=== PATIENT | male | born 1940 | race Caucasian/White ===

== ENCOUNTER 2021-11-10 12:00 | Emergency (ER) | payer OTHER ==
[~2021-11-10] VITALS: Ht 182.9 cm; Wt 99.8 kg
[2021-11-10] MEDS ORDERED: HYDROcodone-ACET 5/325MG TAB PO ONE (15:00)
[2021-11-10] MEDS ORDERED: LISINOPRIL 20 MG TAB PO ONE (18:15)
[2021-11-10] MEDS ORDERED: LISINOPRIL 10 MG TAB PO ONE (18:30)
[2021-11-11 00:20] LABS: Urine Amorphous Crystal FEW /hpf (None Seen); Urine Bacteria NONE SEEN /hpf (None Seen); Urine Blood Negative /uL (Negative); Urine Mucus FEW (None Seen); Urine Specific Gravity 1.015 (1.001-1.035); Urine WBC 1 /hpf (0 - 3)
[2021-11-11 00:47] VITALS: BP 152/81
== END 2021-11-11 01:27 | disposition short-term general hospital (02) ==
LOC: ER 12:00 → EDBD 12:00 → EDSEX 12:00 → ER 11-11 01:27
DX: S00.83XA Contusion of other part of head, initial encounter (principal); I11.0 Hypertensive heart disease with heart failure; I50.9 Heart failure, unspecified; M17.12 Unilateral primary osteoarthritis, left knee; M62.830 Muscle spasm of back; M25.511 Pain in right shoulder; Z88.6 Allergy status to analgesic agent; Z85.46 Personal history of malignant neoplasm of prostate; W18.39XA Other fall on same level, initial encounter; Y93.89 Activity, other specified; Y92.098 Other place in other non-institutional residence as the place of occurrence of the external cause; Y99.8 Other external cause status
CPT/HCPCS: 70450; 72125; 73030; 73200; 73560; 81001; 93005

== ENCOUNTER 2022-01-01 01:22 | Emergency (ER) | payer OTHER ==
[~2022-01-01] VITALS: Ht 180.3 cm; Wt 99.8 kg
[2022-01-01] MEDS ORDERED: DexAMETHasone SOD PHOS 10MG/1ML VIAL INJ IV ONE (02:45)
[2022-01-01] MEDS ORDERED: diphenhdrAMINE HCL 50 MG/1 ML VL IV ONE (02:45)
[2022-01-01 04:12] VITALS: BP 151/80
== END 2022-01-01 06:00 | disposition home or self-care (01) ==
LOC: EDBD 01:22 → ER 01:44
DX: T78.40XA Allergy, unspecified, initial encounter (principal); I11.0 Hypertensive heart disease with heart failure; I50.9 Heart failure, unspecified; X58.XXXA Exposure to other specified factors, initial encounter
CPT/HCPCS: 96374; 96375; 99284; J1100; J1200

== ENCOUNTER 2022-03-09 08:45 | Emergency (ER) | payer OTHER ==
[~2022-03-09] VITALS: Ht 170.2 cm; Wt 218.0 kg
[2022-03-09 10:58] LABS: Urine Bacteria FEW /hpf (None Seen); Urine Blood Negative /uL (Negative); Urine Mucus FEW (None Seen); Urine WBC 1 /hpf (0 - 3)
[2022-03-09] MEDS ORDERED: NEOMYCIN-BACITRACIN-POLYM 15GM TOP OINT TOP SCH (12:00)
[2022-03-09 12:13] VITALS: BP 152/74
== END 2022-03-09 11:56 | disposition home or self-care (01) ==
LOC: ER 08:45 → EDBD 08:45 → ER 11:56
DX: S01.01XA Laceration without foreign body of scalp, initial encounter (principal); M62.838 Other muscle spasm; W18.09XA Striking against other object with subsequent fall, initial encounter; Y93.89 Activity, other specified; Y92.89 Other specified places as the place of occurrence of the external cause; Y99.8 Other external cause status
CPT/HCPCS: 70450; 72125; 81001

== ENCOUNTER 2024-01-29 21:01 | Emergency (ER) | payer OTHER ==
[~2024-01-29] VITALS: Ht 170.2 cm; Wt 99.5 kg
[~2024-01-29 21:01] MED LIST: ALEN70TA74 PO; BISO5TAB44 PO; CETI10TA2 PO; CYAN1SUB2 SL; DULO1CAP6 PO; DULO20CA PO; ESCI1TAB36 PO; GABA-1308 PO; LEVO50TA7 PO; MIRA25TA OR; OMEG-20 PO; SENN-213 PO
[2024-01-29 22:33] LABS: Basophils # (auto) 0 10 ^3/uL (0-0.2); Basophils % (auto) 0.9 % (0.0-2.0); Eosinophils # (auto) 0.3 10 ^3/uL (0-0.8); Eosinophils % (auto) 4.7 % (0.0-7.0); Hematocrit 38.3 % (41.0-53.0); Hemoglobin 12.4 g/dL (13.5-17.5); Lymphocytes # (auto) 1.5 10 ^3/uL (0.4-5.4); Lymphocytes % (auto) 25.8 % (10.0-50.0); Mean Corpuscular Hemoglobin 29.5 pg (28.0-32.0); Mean Corpuscular Hgb Conc. 32.4 g/dL (32.0-36.0); Monocytes # (auto) 0.6 10 ^3/uL (0-1.3); Monocytes % (auto) 10.7 % (0.0-12.0); Neutrophils # (auto) 3.3 10 ^3/uL (1.6-8.6); Neutrophils % (auto) 57.9 % (37.0-80.0); Nucleated Red Blood Cells % 0.3 %; Red Blood Cells 4.21 10^6/uL (4.5-5.90); White Blood Cell 5.7 10^3/uL (4.4-10.8)
[2024-01-29 22:50] LABS: Alanine Aminotransferase 14 U/L (7-40); Alkaline Phosphatase 144 U/L (46-116); Anion Gap 7 (5-15); Aspartate Aminotransferase 25 U/L (13-40); BUN/Creatinine Ratio 21.3 (10.0-20.0); Blood Urea Nitrogen 19 mg/dL (9-23); Calcium 9.8 mg/dL (8.7-10.4); Carbon Dioxide 25 mmol/L (20-30); Chloride 106 mmol/L (98-107); Glucose 102 mg/dL (74-106); Potassium 4.8 mmol/L (3.5-5.1); Sodium 138 mmol/L (136-145)
[2024-01-29 22:51] LABS: Bilirubin, Total 0.5 mg/dL (0.2-1.0)
[2024-01-29 23:37] VITALS: PULSE 74; RESP 19; O2SAT 94
[2024-01-29] MEDS: ONDANSETRON HCL 4 MG/2 ML VIAL IV ONE (23:52)
[2024-01-29] MEDS: MORPHINE SULFATE 4 MG/ML SYR/VIAL IV ONE (23:53)
[2024-01-30] MEDS: IOHEXOL 350 MG/ML 100ML IJ ONE (03:08)
[2024-01-30 08:38] VITALS: PULSE 60; RESP 16; O2SAT 97
[2024-01-30 10:15] VITALS: BP 101/44; PULSE 69; RESP 15; TEMP 98; O2SAT 91
== END 2024-01-30 04:05 | disposition short-term general hospital (02) ==
LOC: ER 21:01
DX: I21.4 Non-ST elevation (NSTEMI) myocardial infarction (principal); M19.90 Unspecified osteoarthritis, unspecified site; C80.1 Malignant (primary) neoplasm, unspecified; C79.51 Secondary malignant neoplasm of bone; C79.89 Secondary malignant neoplasm of other specified sites; I50.33 Acute on chronic diastolic (congestive) heart failure; Z88.6 Allergy status to analgesic agent; Z88.8 Allergy status to other drugs, medicaments and biological substances; Z95.0 Presence of cardiac pacemaker
CPT/HCPCS: 36415; 71045; 71275; 80053; 83880; 84484; 85025; 96374; 96375; 99291; J2270; J2405; Q9967

== ENCOUNTER 2024-05-27 08:21 | Emergency (ER) | payer OTHER ==
[~2024-05-27] VITALS: Ht 172.7 cm; Wt 95.5 kg
[2024-05-27 09:23] VITALS: PULSE 77; RESP 17; TEMP 98.4; O2SAT 93
[2024-05-27 09:29] LABS: Basophils # (auto) 0 10 ^3/uL (0-0.2); Basophils % (auto) 0.7 % (0.0-2.0); Eosinophils # (auto) 0.1 10 ^3/uL (0-0.8); Eosinophils % (auto) 1.1 % (0.0-7.0); Hematocrit 41.7 % (41.0-53.0); Hemoglobin 13.8 g/dL (13.5-17.5); Lymphocytes # (auto) 0.8 10 ^3/uL (0.4-5.4); Lymphocytes % (auto) 11.7 % (10.0-50.0); Mean Corpuscular Hemoglobin 28.7 pg (28.0-32.0); Mean Corpuscular Volume 87.1 fL (80.0-100.0); Monocytes % (auto) 15.7 % (0.0-12.0); Neutrophils # (auto) 4.7 10 ^3/uL (1.6-8.6); Neutrophils % (auto) 70.8 % (37.0-80.0); Platelet Count (auto) 204 10^3/uL (140-450); Red Blood Cells 4.79 10^6/uL (4.5-5.90); Red Cell Distribution Width 14.1 % (11.8-14.3); White Blood Cell 6.6 10^3/uL (4.4-10.8)
[2024-05-27 09:42] LABS: Albumin 3.9 g/dL (3.2-4.8); Alkaline Phosphatase 105 U/L (46-116); Anion Gap 7 (5-15); Aspartate Aminotransferase 23 U/L (13-40); Blood Urea Nitrogen 16 mg/dL (9-23); Calcium 9.4 mg/dL (8.7-10.4); Carbon Dioxide 25 mmol/L (20-31); Chloride 105 mmol/L (98-107); Glucose 115 mg/dL (74-106); Magnesium 2.1 mg/dL (1.6-2.6); Potassium 4.1 mmol/L (3.5-5.1); Sodium 137 mmol/L (136-145)
[2024-05-27 09:43] LABS: Bilirubin, Total 1.2 mg/dL (0.2-1.0)
[2024-05-27 09:48] LABS: INR 1.03 (0.9-1.15); Partial Thromboplastin Time 30.7 SEC (24.5-34.5); Prothrombin Time 10.9 sec (9.3-11.8)
[2024-05-27 10:02] LABS: Alanine Aminotransferase 9 U/L (7-40)
[2024-05-27] MEDS: IOHEXOL 350 MG/ML 100ML IJ ONE (12:58)
[2024-05-27] MEDS: MORPHINE SULFATE 4 MG/ML SYR/VIAL IV ONE (13:45)
[2024-05-27] MEDS: ONDANSETRON HCL 4 MG/2 ML VIAL IV ONE (13:45)
[2024-05-27] MEDS ORDERED: FAMO20TA10 PO (16:13)
[2024-05-27] MEDS ORDERED: DICL50TA2 PO (16:13)
[2024-05-27] MEDS: OXYCODONE W/ ACETAMINOPHEN 5/325MG TABLET PO ONE (16:45)
[2024-05-27 17:40] VITALS: BP 135/55; PULSE 78; RESP 17; O2SAT 97
[2024-05-27] MEDS ORDERED: PERCOT PO (17:48)
== END 2024-05-27 18:19 | disposition home or self-care (01) ==
LOC: EDBD 08:21 → ER 08:21
DX: S22.009A Unspecified fracture of unspecified thoracic vertebra, initial encounter for closed fracture (principal); E03.9 Hypothyroidism, unspecified; K20.90 Esophagitis, unspecified without bleeding; C79.51 Secondary malignant neoplasm of bone; C61 Malignant neoplasm of prostate; I11.0 Hypertensive heart disease with heart failure; I50.9 Heart failure, unspecified; I25.10 Atherosclerotic heart disease of native coronary artery without angina pectoris; F32.A Depression, unspecified; M19.90 Unspecified osteoarthritis, unspecified site; Z95.0 Presence of cardiac pacemaker; Z79.899 Other long term (current) drug therapy; Z85.46 Personal history of malignant neoplasm of prostate; Z95.5 Presence of coronary angioplasty implant and graft; Z79.890 Hormone replacement therapy; Z88.5 Allergy status to narcotic agent; Z88.8 Allergy status to other drugs, medicaments and biological substances; Z91.041 Radiographic dye allergy status
CPT/HCPCS: 36415; 71045; 71260; 74177; 80053; 83735; 83880; 84443; 84484; 85025; 85379; 85610; 85730; 93005; 96374; 96375; 99285; J2270; J2405; Q9967

== ENCOUNTER 2024-06-07 16:27 | Inpatient (IN) | payer OTHER ==
[~2024-06-07] VITALS: Ht 170.2 cm; Wt 96.9 kg
[~2024-06-07 16:27] MED LIST changes: +DICL50TA2 PO; +FAMO20TA10 PO; +PERCOT PO
[2024-06-07 16:40] VITALS: PULSE 61; RESP 22; O2SAT 95
--- NOTE | 2024-06-07 16:45 | ED.PDOC ---
History of Present Illness HPI Comments 83 y.o male with PMH of prostate cancer, hyperlipidemia, HTN, CVA, thyroid and CHF, presents to the ED via EMS for a chief complaint of dizziness s/p blood draw today. Patient reports he was in [place] getting some blood work done before he started chemotherapy for prostate cancer that metastasized, felt lightheaded and short of breath. Patient then went home to rest and a couple hours later when getting up to use the restroom, he felt dizzy accompanied with cold sweats. Patient denies any LOC, but does complaint of new onset mild chest pain across lower chest region and some SOB. Patient denies any nausea, vomiting, diarrhea, fever or chills. Time Seen by : 16:31 Primary Care Provider: NEIDA Reviewed Notes: Nurses Notes, [facility] Notes, Medications, Allergies Allergies: Coded Allergies: Acetaminophen (Verified Allergy, Unknown, 01/29/24) Hydrocodone (Verified Allergy, Unknown, 01/29/24) Iodine (Verified Allergy, Unknown, 04/24/23) Home Meds Active Scripts Oxycodone W/ Acetaminophen (Percocet 5/325MG) 1 Tab Tb, 1 TAB PO TID PRN for 10 Days, #30 TAB Prov:TOSHA SOSA MD 05/27/24 Famotidine (PEPCID TABLET) 20 Mg Tb, 1 TAB PO BID for 20 Days, #40 TAB 5 Refills Prov:TOSHA SOSA MD 05/27/24 Diclofenac Potassium (Diclofenac Potassium) 50 Mg Tab, 1 TAB PO TIDP for 10 D ays, #30 TAB Prov:TOSHA SOSA MD 05/27/24 Reported Medications Mirabegron Base (MYRBETRIQ) 25 Mg Tab, 25 MG OR DAILY, TAB 11/11/23 Alendronate Sodium (Alendronate Sodium) 70 Mg Tab, 1 TAB PO QWEEKLY, #4 TAB 3 Refills 11/11/23 Sennosides-Docusate Sodium (Senna Plus 8.6-50 mg) 1 Tab Tab, 1 TAB PO QHSP for CONSTIPATION, TAB 11/11/23 Bisoprolol Fumarate (Bisoprolol Fumarate) 5 Mg Tab, 1 TAB PO DAILY for HEART FAILURE, #30 TAB 5 Refills 11/11/23 Cyanocobalamin (Gnp B-12) 2,500 Mcg Sub, 2500 MCG SL DAILY, INJ 11/11/23 [place]-3 Fatty Acids (FISH OIL) 1,000 Mg Cap, 1000 MG PO DAILY, CAP 11/11/23 Escitalopram Oxalate (ESCITALOPRAM OXALATE) 10 Mg Tab, 1 TAB PO DAILY for DEPRESSION, #30 TAB 3 Refills 11/11/23 Duloxetine Hcl (Cymbalta) 20 Mg Cap, 1 CAP PO DAILY, #30 CAP 2 Refills 11/11/23 Cetirizine Hcl (Kls Aller-Chanda) 10 Mg Tab, 1 TAB PO QAM, #30 TAB 3 Refills 11/11/23 Levothyroxine Sodium (Levothyroxine Sodium) 50 Mcg Tab, 50 MCG PO QAM, TAB 11/11/23 Gabapentin (Gabapentin) 100 Mg Cap, 100 MG PO QHSP for 30 Days, MG 11/11/23 Duloxetine HCl (Duloxetine HCl) 60 Mg Cap, 1 CAP PO DAILY 11/11/23 Information Source: Patient, Emergency Med Personnel Mode of Arrival: EMS Severity: Moderate Timing: Hours Duration: Since onset Past Medical History PAST MEDICAL HISTORY: Arthritis, Cancer, CHF, Depression, HTN, Thyroid Surgical History: Pacemaker Family History Family History: Reviewed,noncontributory to illness Social History Smoker: Non-Smoker Alcohol: Denies ETOH Use Drugs: Denies Drug Use Lives In: Home Constitutional: reports: sweats; denies: chills, diaphoresis, fatigue, fever, malaise, weakness, others EENTM: denies: blurred vision, double vision, ear bleeding, ear discharge, ear drainage, ear pain, ear ringing, eye pain, eye redness, hearing loss, mouth pain, mouth swelling, nasal discharge, nose bleeding, nose congestion, nose pain, photophobia, tearing, throat pain, throat swelling, voice changes, others Respiratory: denies: cough, hemoptysis, orthopnea, SOB at rest, shortness of breath, SOB with excertion, stridor, wheezing, others Cardiovascular: reports: lightheadedness; denies: chest pain, dizzy spells, diaphoresis, Dyspnea on exertion, edema, irregular heart beat, left arm pain, palpitations, PND, syncope, others Gastrointestinal: denies: abdomen distended, abdominal pain, blood streaked bowels, constipated, diarrhea, dysphagia, difficulty swallowing, hematemesis, melena, nausea, poor appetite, poor fluid intake, rectal bleeding, rectal pain, vomiting, others Genitourinary: denies: burning, dysuria, flank pain, frequency, hematuria, incontinence, penile discharge, penile sore, pain, testicle pain, testicle swelling, urgency, others Neurological: reports: dizziness; denies: fainting, headache, left sided numbness, left sided weakness, numbness, paresthesia, pre-existing deficit, right sided numbness, right sided weakness, seizure, speech problems, tingling, tremors, weakness, others Musculoskeletal: denies: back pain, gout, joint pain, joint swelling, muscle pain, muscle stiffness, neck pain, others Integumetry: denies: bruises, change in color, change in hair/nails, dryness, laceration, lesions, lumps, rash, wounds, others Allergic/Immunocompromised: denies: Difficulty Healing, Frequent Infections, Hives, Itching, others Hematologic/Lymphatic: denies: anemia, blood clots, easy bleeding, easy bruising, swollen glands, others Endocrine: denies: excessive hunger, excessive sweating, excessive thirst, excessive urination, flushing, intolerance to cold, intolerance to heat, unexplained weight gain, unexplained weight loss, others Psychiatric: denies: anxiety, bipolar disorder, depression, hopeless, panic disorder, schizophrenia, sleepless, suicidal, others All Other Systems: Reviewed and Negative Physical Exam General Appearance: Moderate Distress HEENT: Pale Conjuntivae (L), Pale Conjuntivae (R), Pharynx Normal, TMs Normal Neck: Full Range of Motion, Non-Tender, Normal, Normal Inspection Respiratory: Chest Non-Tender, Lungs Clear, No Accessory Muscle Use, No Respiratory Distress, Normal Breath Sounds Cardiovascular: No Edema, No JVD, No Murmur, No Gallop, Normal Peripheral Pulses, Regular Rate/Rhythm Breast Exam: Deferred Gastrointestinal: No Organomegaly, Non Tender, No Pulsatile Mass, Normal Bowel Sounds, Soft Genitalia: Deferred Pelvic: Deferred Rectal: Deferred Extremities: No calf tenderness, Normal capillary refill, Normal inspection, Normal range of motion, Non-tender, No pedal edema Musculoskeletal : Apperance: Normal Neurologic: Alert, photogrammetry airplane pilot II-XII nml as Tested, Motor Weakness, Normal Affect, Normal Mood, No Sensory Deficits Cerebellar Function: Normal Reflexes: Normal Skin: Dry, Pallor, Warm Lymphatic: No Adenopathy Was a procedure done? Was a procedure done?: No Differential Dx Considerations may include: Dehydration, electrolyte imbalance X-Ray, Labs, Meds, VS Vital Signs Date Time Temp Pulse Resp B/P (MAP) Pulse Ox O2 Delivery O2 Flow Rate FiO2 06/07/24 19:02 97.6 72 18 124/77 (93) 94 06/07/24 16:45 72 06/07/24 16:40 61 22 95 Room Air* 0 21 06/07/24 16:40 98.4 95 22 100/55 (70) 94 98.4 Lab Test 06/07/24 19:15 06/07/24 18:02 Range/Units Troponin I High Sensitivity Pending 24 </=54 ng/L White Blood Count 8.5 4.4-10.8 10^3/uL Red Blood Count 3.85 L 4.5-5.90 10^6/uL Hemoglobin 10.9 L 13.5-17.5 g/dL Hematocrit 33.4 L 41.0-53.0 % Mean Corpuscular Volume 86.7 80.0-100.0 fL Mean Corpuscular Hemoglobin 28.2 28.0-32.0 pg Mean Corpuscular Hemoglobin Concent 32.5 32.0-36.0 g/dL Red Cell Distribution Width 13.9 11.8-14.3 % Platelet Count 309 140-450 10^3/uL Mean Platelet Volume 8.0 6.9-10.8 fL Neutrophils (%) (Auto) 75.5 37.0-80.0 % Lymphocytes (%) (Auto) 12.8 10.0-50.0 % Monocytes (%) (Auto) 9.3 0.0-12.0 % Eosinophils (%) (Auto) 1.8 0.0-7.0 % Basophils (%) (Auto) 0.6 0.0-2.0 % Neutrophils # (Auto) 6.4 1.6-8.6 10 ^3/uL Lymphocytes # (Auto) 1.1 0.4-5.4 10 ^3/uL Monocytes # (Auto) 0.8 0-1.3 10 ^3/uL Eosinophils # (Auto) 0.2 0-0.8 10 ^3/uL Basophils # (Auto) 0.1 0-0.2 10 ^3/uL Nucleated Red Blood Cells 0.0 % Sodium Level 138 136-145 mmol/L Potassium Level 5.7 *H 3.5-5.1 mmol/L Chloride Level 107 98-107 mmol/L Carbon Dioxide Level 29 20-31 mmol/L Anion Gap 2 L 5-15 Blood Urea Nitrogen 32 H 9-23 mg/dL Creatinine 0.98 0.700-1.30 mg/dL Glomerular Filtration Rate Calc 77 >90 mL/min BUN/Creatinine Ratio 32.7 H 10.0-20.0 Serum Glucose 128 H 74-106 mg/dL Calcium Level 9.3 8.7-10.4 mg/dL IV Hep-Lock was established. The CBC shows anemia with a hemoglobin of 10.9 The hematocrit of 33.4 The chemistry panel was done in his within normal limits except for potassium of 5.7. At this time, the patient was treated with sodium bicarbonate as well as calcium for the elevated potassium We did contact [facility] [place] because of the patient's seems to be unstable for [facility]. Because of the patient's autonomic dysfunction, we did make the patient unstable for transfer. The [facility] [place] authorization #[id number] We have discussed the findings with the patient and they are in agreement with the management. Time of 1ST Reevaluation: 16:41 Reevaluation 1ST: Unchanged Patient Education/Counseling: Diagnosis, Treatment, Prognosis Family Education/Counseling: No Family Present Departure 1 Departure Time of Disposition: 20:08 Impression: Primary Impression: Autonomic dysfunction Additional Impressions: Hyperkalemia Generalized weakness Disposition: ADMITTED INPATIENT Admit to: Tele Condition: Fair Critical Care Note Critical Care Time?: Yes (45 min-critical care time only) Stability Stability form required: Yes Unstable for transfer: Telemetry monitoring (Telemetry monitoring required), ED Physician Assesment (Clinical assesment) I personally scribed for BRYAN WHEELER MD ([email or web address]) on 06/07/24 at 16:45. Electronically submitted by Ml Zuluaga ([facility]). BRYAN WHEEELR MD Jun 07, 2024 16:45
[2024-06-07 18:44] LABS: Basophils # (auto) 0.1 10 ^3/uL (0-0.2); Basophils % (auto) 0.6 % (0.0-2.0); Eosinophils # (auto) 0.2 10 ^3/uL (0-0.8); Eosinophils % (auto) 1.8 % (0.0-7.0); Hematocrit 33.4 % (41.0-53.0); Hemoglobin 10.9 g/dL (13.5-17.5); Lymphocytes # (auto) 1.1 10 ^3/uL (0.4-5.4); Lymphocytes % (auto) 12.8 % (10.0-50.0); Mean Corpuscular Hemoglobin 28.2 pg (28.0-32.0); Mean Corpuscular Hgb Conc. 32.5 g/dL (32.0-36.0); Mean Corpuscular Volume 86.7 fL (80.0-100.0); Monocytes # (auto) 0.8 10 ^3/uL (0-1.3); Monocytes % (auto) 9.3 % (0.0-12.0); Neutrophils # (auto) 6.4 10 ^3/uL (1.6-8.6); Neutrophils % (auto) 75.5 % (37.0-80.0); Platelet Count (auto) 309 10^3/uL (140-450); Red Blood Cells 3.85 10^6/uL (4.5-5.90); Red Cell Distribution Width 13.9 % (11.8-14.3); White Blood Cell 8.5 10^3/uL (4.4-10.8)
--- NOTE | 2024-06-07 18:45 | ECG ---
[facility] Test Date: 2024-06-07 Test Time: 16:45:30 Pat Name: LEONARDA LY Department: ER Room: 0280 Gender: M [employer]o Press Operator: SB : [id number] Requested By: BRYAN WHEELER Order Number: [id number] Reading MD: David Russell Measurements Intervals [place] Rate: 72 P: 29 MN: 235 QRS: -50 QRSD: 131 T: 106 QT: 419 QTc: 459 Interpretive Statements Ventricular-paced complexes No further rhythm analysis attempted due to paced rhythm Prolonged MN interval LVH with IVCD, LAD and secondary repol abnrm Anterolateral infarct, age indeterminate Electronically Signed On 06-12-2024 7:55:24 PDT by David Russell Please click the below link to view image of tracing.
[2024-06-07 18:53] LABS: Chloride 107 mmol/L (98-107); Sodium 138 mmol/L (136-145)
[2024-06-07 18:54] LABS: Anion Gap 2 (5-15); Calcium 9.3 mg/dL (8.7-10.4); Carbon Dioxide 29 mmol/L (20-31)
[2024-06-07 18:59] LABS: BUN/Creatinine Ratio 32.7 (10.0-20.0); Blood Urea Nitrogen 32 mg/dL (9-23); Glucose 128 mg/dL (74-106)
[2024-06-07 19:06] LABS: Potassium 5.7 mmol/L (3.5-5.1)
[2024-06-07 20:00] VITALS: PULSE 77; RESP 18; O2SAT 95
[2024-06-07] MEDS: CALCIUM GLUC 1,000mg/50ml-NS 50 ML IV ONE (20:30)
[2024-06-07] MEDS: SODIUM BICARB 8.4% 50Meq/50ml SYR Vial IV ONE (20:30)
[2024-06-07] MEDS ORDERED: NITROGLYCERIN 0.4 MG SL TAB SL PRN (22:15)
[2024-06-07] MEDS ORDERED: MORPHINE SULFATE INJ 2 MG/ml SYRG IV PRN (22:15)
[2024-06-07] MEDS: ENOXAPARIN SOD 40 MG/0.4 ML SYRINGE SC SCH (22:45)
[2024-06-08] VITALS (9 sets, daily range): BP systolic 106–127; BP diastolic 39–55; PULSE 56–89; RESP 14–18; TEMP 97.4–98.5; O2SAT 96–99
--- NOTE | 2024-06-08 | DVHHPRES ---
History of Present Illness Resident Creating Document: BONG ZARATE RESIDENT History of Present Illness LEONARDA LY 83 years old male with a PMH of prostate cancer, hyperlipidemia, HTN, CVA, CHF presented to the ED with the chief complaints of dizziness since 1 week prior to admission. Patient reported he has been having dizziness on and off for past 1 week but today patient reported that he went to [place] for blood test and went home to rest and a couple hours later when getting up to use the restroom, he felt dizzy accompanied with cold sweats and nausea. 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 Patient complaints of mild chest pain in the lower chest across going to back and some SOB for which he has been on home oxygen. On my assessment patient denies LOC, nausea, vomiting, diarrhea, fever and other acute symptoms. Past Medical History Arthritis, prostatic cancer, CHF, depression, HTN, hypothyroidism Past Surgical History Pacemaker and valve replacement surgery in 2023 Family History denies Past Social History Lives with , denies smoking, alcohol and other drug abuse Review of Systems Constitutional: No: Fever, Chills, Sweats, Weakness, Malaise, Other Eyes: No: Pain, Vision change, Conjunctivae inflammation, Eyelid inflammation, Other, Redness ENT: No: Ear pain, Ear discharge, Nose pain, Nose discharge, Nose congestion, Mouth pain, Mouth swelling, Throat pain, Throat swelling, Other Respiratory: Shortness of breath Cardiovascular: Lt Headedness Gastrointestinal: Nausea Genitourinary: No Dysuria, No Frequency, No Incontinence, No Hematuria, No Retention, No Other Musculoskeletal: No: other, neck pain, shoulder pain, arm pain, back pain, hand pain, leg pain, foot pain Skin: No: Rash, Lesions, Jaundice, Bruising, Other Neurological: No: Weakness, Numbness, Incoordination, Change in speech, Confusion, Seizures, Other Allergies: Coded Allergies: Acetaminophen (Verified Allergy, Unknown, 01/29/24) Hydrocodone (Verified Allergy, Unknown, 01/29/24) Iodine (Verified Allergy, Unknown, 04/24/23) Medications Current Medications Medications Dose Ordered Sig/Nga Route Start Time Stop Time Status Last Admin Dose Admin Sodium Chloride 10 ml Q8HR IV 06/08/24 06:00 Acetaminophen 325 mg Q4HP PRN PO 06/07/24 22:15 Ondansetron HCl 4 mg Q4HP PRN IV 06/07/24 22:15 Enoxaparin Sodium 40 mg DAILY SC 06/07/24 22:15 06/07/24 22:45 40 MG Nitroglycerin 0.4 mg Q5MINP PRN SL 06/07/24 22:15 Morphine Sulfate 2 mg Q30M PRN IV 06/07/24 22:15 Gabapentin 100 mg QHSP PO 06/08/24 22:00 UNV Levothyroxine Sodium 50 mcg QAM PO 06/08/24 07:00 UNV Oxycodone/ Acetaminophen 1 tab TID PRN PO 06/08/24 00:00 UNV Patient Own Medication 1 tab QWEEKLY PO 06/08/24 00:00 UNV Patient Own Medication 1 tab DAILY PO 06/08/24 10:00 UNV Patient Own Medication 1 tab QAM PO 06/08/24 07:00 UNV Patient Own Medication 2,500 mcg DAILY SL 06/08/24 10:00 UNV Patient Own Medication 1 tab DAILY PO 06/08/24 10:00 UNV Patient Own Medication 25 mg DAILY OR 06/08/24 10:00 UNV Pantoprazole Sodium 40 mg DAILY IV 06/08/24 10:00 UNV Exam Vital Signs Vital Signs Date Time Temp Pulse Resp B/P (MAP) Pulse Ox O2 Delivery O2 Flow Rate FiO2 06/07/24 23:43 80 22 118/46 (70) 100 06/07/24 20:00 Nasal Cannula* 2 28 06/07/24 20:00 98.0 98.0 Exam Pt is lying on bed General Appearance: Alert, Oriented X3, Cooperative, Not in acute distress HEENT: Atraumatic, Mucous membranes moist/pink Respiratory: Clear to auscultation, Normal air movement, Cardiovascular: Regular rate, Normal S1, Normal S2, No murmurs Abdominal: Active bowel sounds, Soft, no distention, no tenderness Extremities: Trace edema, Normal pulses, No tenderness/swelling Skin: No Significant rash, except past surgical scars Neuro: Normal speech, sensorimotor deficits none Psych/Mental Status: Mental status NL, Mood NL Nurse was there as sharperone during examination Labs/Xrays Labs Test 06/07/24 20:50 06/07/24 18:02 Range/Units Troponin I High Sensitivity 17 </=54 ng/L White Blood Count 8.5 4.4-10.8 10^3/uL Red Blood Count 3.85 L 4.5-5.90 10^6/uL Hemoglobin 10.9 L 13.5-17.5 g/dL Hematocrit 33.4 L 41.0-53.0 % Mean Corpuscular Volume 86.7 80.0-100.0 fL Mean Corpuscular Hemoglobin 28.2 28.0-32.0 pg Mean Corpuscular Hemoglobin Concent 32.5 32.0-36.0 g/dL Red Cell Distribution Width 13.9 11.8-14.3 % Platelet Count 309 140-450 10^3/uL Mean Platelet Volume 8.0 6.9-10.8 fL Neutrophils (%) (Auto) 75.5 37.0-80.0 % Lymphocytes (%) (Auto) 12.8 10.0-50.0 % Monocytes (%) (Auto) 9.3 0.0-12.0 % Eosinophils (%) (Auto) 1.8 0.0-7.0 % Basophils (%) (Auto) 0.6 0.0-2.0 % Neutrophils # (Auto) 6.4 1.6-8.6 10 ^3/uL Lymphocytes # (Auto) 1.1 0.4-5.4 10 ^3/uL Monocytes # (Auto) 0.8 0-1.3 10 ^3/uL Eosinophils # (Auto) 0.2 0-0.8 10 ^3/uL Basophils # (Auto) 0.1 0-0.2 10 ^3/uL Nucleated Red Blood Cells 0.0 % Sodium Level 138 136-145 mmol/L Potassium Level 5.7 *H 3.5-5.1 mmol/L Chloride Level 107 98-107 mmol/L Carbon Dioxide Level 29 20-31 mmol/L Anion Gap 2 L 5-15 Blood Urea Nitrogen 32 H 9-23 mg/dL Creatinine 0.98 0.700-1.30 mg/dL Glomerular Filtration Rate Calc 77 >90 mL/min BUN/Creatinine Ratio 32.7 H 10.0-20.0 Serum Glucose 128 H 74-106 mg/dL Calcium Level 9.3 8.7-10.4 mg/dL Assessment/Plan Assessment/Plan # Dizziness likely presyncope -admitted to telemetry unit -ordered Carotid Doppler, pending -check orthostatic vitals # Hyprkalemia - given Lokelma - Monitor lab # prostate cancer -continue follow up with Oncology # Acute on chronic hypoxic respiratory failure -currently on 3 L NC -[place] CXR # Depression not in suicidal or homicidal ideation -continue home meds # hypothyroidism -continue home meds levothyroxine 50 mcg Cardiac Diet for now Lovenox for VTE PPX Protonix Reconciled home meds Goals of care with the patient for more than 27 minutes: Full code status Case management discussed with Dr. Alvarez, patient and nurse Plan discussed with: Patient, Other (nurse) My Orders Orders - BONG ZARATE RESIDENT Procedure Category Date Status Time Admit ADMIT 06/07/24 Transmitted 22:03 Allergies SARAH 06/07/24 In Process 22:03 Code Status CODE 06/07/24 Transmitted 22:03 Sodium Chloride Lock PHA 06/08/24 In Process (Saline Lock Ns) 06:00 Acetaminophen Tablet PHA 06/07/24 In Process (Tylenol Tablet) 22:15 Ondansetron Hcl PHA 06/07/24 In Process (Zofran) 22:15 Complete Blood Count LAB 06/08/24 Verified 04:00 Comprehensive LAB 06/08/24 Verified Metabolic Panel 04:00 Cardiac DIET 06/08/24 Transmitted Diet-2gna,Lofat,Lochol Breakfast Carotid Duplx W Color US 06/07/24 Taken DOP 22:03 Enoxaparin Sodium PHA 06/07/24 In Process (Lovenox) 22:15 Nitroglycerin PHA 06/07/24 In Process Sublingual (Ntrostat 22:15 Morphine Sulfate PHA 06/07/24 In Process Injection 22:15 Oxygen By Nasal RT 06/07/24 Transmitted Cannula 22:03 Stat Ekg For Chest SARAH 06/07/24 In Process Pain 22:03 Notify Of Changes SARAH 06/07/24 In Process From Base 22:03 Long Wall Shear Operator For SARAH 06/07/24 In Process 24 Hours 22:03 Emergency Dysrhythmia SARAH 06/07/24 In Process Protocol 22:03 Rhythm Strips Once SARAH 06/07/24 In Process Every Shift 22:03 Sodium Zirconium PHA 06/08/24 Logged Cyclosilicate 00:00 Chest Xray 1 View XY 06/07/24 Logged 23:51 Gabapentin Capsule PHA 06/08/24 Logged (Neurontin Capsule) 22:00 Levothyroxine Tablet PHA 06/08/24 Logged (Synthroid Tablet) 07:00 Oxycodone W/ Acet PHA 06/08/24 Logged 5/325mg Tab (Percocet 00:00 (Nf) Alendronate PHA 06/08/24 Logged Sodium 00:00 (Nf) Bisoprolol PHA 06/08/24 Logged Fumarate 10:00 (Nf) Cetirizine Hcl PHA 06/08/24 Logged (Kls Aller-Chanda) 07:00 (Nf) Cyanocobalamin PHA 06/08/24 Verified (Gnp B-12) 10:00 (Nf) Escitalopram PHA 06/08/24 Verified Oxalate 10:00 (Nf) Mirabegron Base PHA 06/08/24 Verified (Myrbetriq) 10:00 Pantoprazole PHA 06/08/24 Logged (Protonix) 00:00 Pantoprazole PHA 06/08/24 Logged (Protonix) 10:00 B-Type Natriuretic LAB 06/07/24 Transmitted Peptide 23:57 Drug Screen LAB 06/07/24 Transmitted 23:57 Hemoglobin A1c LAB 06/07/24 Transmitted 23:57 PTPTT LAB 06/08/24 Verified 04:00 Vitamin D, 25-Hydroxy LAB 06/07/24 Transmitted 23:57 Vitamin B12 LAB 06/07/24 Transmitted 23:57 Urinalysis LAB 06/07/24 Transmitted 23:57 Thyroid Stimulating LAB 06/07/24 Transmitted Hormone 23:57 Date of Service: Jun 07, 2024 Billing Provider: SHERIF ALVAREZ MD Common Visit Codes: 26534-IMIQUVW INP/OBS CARE (HIGH) Secondary Visit Codes: 57037-[id number] CARE PLAN 30 MINUTES ELLIOTPERCYARPIT RESIDENT Jun 08, 2024 00:00 SHERIF ALVAREZ MD Jun 10, 2024 08:21
[2024-06-08] MEDS: SODIUM ZIRCONIUM CYCL 10 GM PAK PO ONE (01:22)
[2024-06-08] MEDS: PANTOPRAZOLE 40 MG/10 ML VIAL INJ IV ONE (01:23)
--- NOTE | 2024-06-08 03:10 | DVH ---
US CAROTID DOPPLER CLINICAL INDICATION: dizziness TECHNIQUE: Multiple grayscale, color Doppler and spectral Doppler ultrasound images were obtained thr oughout both carotid systems. COMPARISON: US CAROTID DUPLX W COLOR DOP on DOS: 11/11/23 FINDINGS: RIGHT: CCA PSV: 80 cm/s ECA PSV: 112 cm/s ICA PSV: 155 cm/s ICA EDV: 32 cm/s ICA/CCA Ratio: 1.9 Vertebral artery: Patent, antegrade flow. Mild soft plaque at the carotid bulb. Grayscale images demonstrate no visible stenosis. Spectral anal ysis demonstrates no hemodynamically significant CCA or ICA stenosis. LEFT: CCA PSV: 89 cm/s ECA PSV: 159 cm/s ICA PSV: 137 cm/s ICA EDV: 17 cm/s ICA/CCA Ratio: 1.5 Vertebral artery: Patent, antegrade flow. Mild calcified plaque in the carotid bifurcation. Grayscale images demonstrate no visible stenosis. Spectral analysis demonstrates no hemodynamically significant CCA or ICA stenosis. IMPRESSION: No evidence of hemodynamically significant CCA or ICA stenosis.
--- NOTE | 2024-06-08 05:45 | DVH ---
CHEST RADIOGRAPH Indication:sob Technique: Single frontal view of the chest was obtained COMPARISON: XY CHEST PORTABLE on DOS: 05/27/24, XY CHEST PORTABLE on DOS: 01/29/24, XY CHEST PORTABLE on DOS: 11/10/23 FINDINGS: Lines and Tubes: Left chest wall pacemaker. Lungs: Mild congestion. Pleura: No effusion. No pneumothorax. Cardiomediastinal contours: Unremarkable Bones: Unremarkable IMPRESSION: Mild pulmonary vascular congestion.
[2024-06-08] MEDS: LEVOTHYROXINE SODIUM 50 MCG TAB PO SCH (06:25)
[2024-06-08] MEDS: SODIUM CHLOR 0.9% PF (SALINE LOCK) 10ML VIAL/SYR IV SCH (06:25)
[2024-06-08 07:06] LABS: Basophils # (auto) 0 10 ^3/uL (0-0.2); Basophils % (auto) 0.4 % (0.0-2.0); Eosinophils # (auto) 0 10 ^3/uL (0-0.8); Eosinophils % (auto) 0.1 % (0.0-7.0); Hemoglobin 9.8 g/dL (13.5-17.5); Lymphocytes # (auto) 1.4 10 ^3/uL (0.4-5.4); Mean Corpuscular Hemoglobin 29.2 pg (28.0-32.0); Mean Corpuscular Hgb Conc. 33.9 g/dL (32.0-36.0); Mean Corpuscular Volume 86.2 fL (80.0-100.0); Monocytes # (auto) 0.9 10 ^3/uL (0-1.3); Monocytes % (auto) 9.1 % (0.0-12.0); Neutrophils # (auto) 7.9 10 ^3/uL (1.6-8.6); Neutrophils % (auto) 76.4 % (37.0-80.0); Nucleated Red Blood Cells % 0.1 %; Platelet Count (auto) 304 10^3/uL (140-450); Red Blood Cells 3.36 10^6/uL (4.5-5.90); White Blood Cell 10.3 10^3/uL (4.4-10.8)
[2024-06-08 07:17] LABS: INR 1.05 (0.9-1.15); Prothrombin Time 11.1 sec (9.3-11.8)
[2024-06-08 07:20] LABS: Alanine Aminotransferase 10 U/L (7-40); Albumin 3.4 g/dL (3.2-4.8); Alkaline Phosphatase 98 U/L (46-116); Anion Gap 5 (5-15); Aspartate Aminotransferase 18 U/L (13-40); BUN/Creatinine Ratio 45.7 (10.0-20.0); Bilirubin, Total 0.3 mg/dL (0.2-1.0); Calcium 9.1 mg/dL (8.7-10.4); Carbon Dioxide 26 mmol/L (20-31); Chloride 108 mmol/L (98-107); Glucose 146 mg/dL (74-106); Magnesium 2.3 mg/dL (1.6-2.6); Potassium 4.8 mmol/L (3.5-5.1); Sodium 139 mmol/L (136-145); Total Protein 5.9 g/dL (5.7-8.2)
[2024-06-08 07:27] LABS: Blood Urea Nitrogen 43 mg/dL (9-23)
[2024-06-08] MEDS: CYANOCOBALAMIN 500 MCG TAB PO SCH (08:55)
[2024-06-08] MEDS: CITALOPRAM HYDROBR 20 MG TAB PO SCH (08:55)
[2024-06-08] MEDS: ONDANSETRON HCL 4 MG/2 ML VIAL IV PRN (08:55)
[2024-06-08] MEDS: PANTOPRAZOLE 40 MG/10 ML VIAL INJ IV SCH ×2 (08:55→21:28)
[2024-06-08] MEDS: ATENOLOL 25 MG TAB PO SCH (08:56)
[2024-06-08] MEDS: FUROSEMIDE 20 MG/2 ML VIAL IV SCH (11:15)
[2024-06-08] MEDS: LORATADINE 10 MG TAB PO ONE (11:27)
[2024-06-08 12:23] LABS: % Iron Saturation 35.1 % (20-55)
--- NOTE | 2024-06-08 16:12 | DVHPNRES ---
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 Patient says that he usually has 2 bowel movements per day recently for the past 2 weeks he has been experiencing C to 4 bowel movements in a day associated with epigastric pain radiating to the back, tarry black stools for the past week, now have pain dark brown. He says that he was recently hospitalized and was receiving antibiotics but does not remember the details. Also reports shortness of breath on rest and exertion for the same duration but no orthopnea/PND. Patient also reported dizziness on rest and on standing up from the bed starting a week ago. Associated factors include nausea and cold sweating. Denies fever/chills. He underwent a colonoscopy and EGD less than 10 years ago which was positive for polyps but details unknown. Patient has a PCP at [facility], does not remember the name Social history Lives with daughter who is the caregiver Never smoked in her life, quit drinking 50 years back, denies illicit drug use Home medications: Patient does not remember, per EMR: Alendronate 70 mg, bisoprolol 5 mg, Percocet, senna, cetirizine, duloxetine, escitalopram, gabapentin, mirabegron, levothyroxine, citalopram Objective vital signs Vital Sign Date Time Temp Pulse Resp B/P (MAP) Pulse Ox O2 Delivery O2 Flow Rate FiO2 06/08/24 13:00 97.8 73 16 127/55 (79) 98 97.8 06/08/24 08:10 Nasal Cannula* 2 28 Total Intake and Output 06/07/24 06/07/24 06/08/24 15:00 23:00 07:00 Intake Total 50 ml 0 ml Balance 50 ml 0 ml medications Current Medications Medications Dose Ordered Sig/Nga Route Start Time Stop Time Status Last Admin Dose Admin Sodium Chloride 10 ml Q8HR IV 06/08/24 06:00 06/08/24 14:15 10 ML Acetaminophen 325 mg Q4HP PRN PO 06/07/24 22:15 Ondansetron HCl 4 mg Q4HP PRN IV 06/07/24 22:15 06/08/24 08:55 4 MG Enoxaparin Sodium 40 mg DAILY SC 06/07/24 22:15 06/08/24 08:56 40 MG Nitroglycerin 0.4 mg Q5MINP PRN SL 06/07/24 22:15 Morphine Sulfate 2 mg Q30M PRN IV 06/07/24 22:15 Gabapentin 100 mg QHSP PO 06/08/24 22:00 Levothyroxine Sodium 50 mcg QAM PO 06/08/24 07:00 06/08/24 06:25 50 MCG Oxycodone/ Acetaminophen 1 tab TID PRN PO 06/08/24 00:00 Patient Own Medication 1 tab QWEEKLY PO 06/09/24 06:00 Atenolol 50 mg DAILY PO 06/08/24 10:00 06/08/24 08:56 50 MG Loratadine 10 mg DAILY PO 06/09/24 10:00 Cyanocobalamin 2,500 mcg DAILY PO 06/08/24 10:00 06/08/24 08:55 2,500 MCG Citalopram Hydrobromide 20 mg DAILY PO 06/08/24 10:00 06/08/24 08:55 20 MG Patient Own Medication 25 mg DAILY PO 06/08/24 10:00 Pantoprazole Sodium 40 mg BID IV 06/08/24 22:00 Furosemide 20 mg BIDD IV 06/08/24 11:15 06/08/24 11:15 20 MG Patient Own Medication 1 DAILY PO 06/09/24 10:00 Examination Elderly male patient lying in bed, in no acute distress, patient experienced 2 dark brown bowel movements during my H and P. reported dizziness seconds later after raising the head of the bed. General: Elderly, afebrile, palor, mucosae are moist Cardiovascular: Regular S1 and S2. No murmurs, gallops or rubs. No JVD elevation. No pedal edema Respiratory: Bilateral basilar crackles heard, saturating 94 on 2 L nasal cannula Abdomen: Soft, nontender, nondistended, normoactive bowel sounds, no rebound tenderness, no organomegaly, no masses Genitourinary: Deferred MSK/skin: Mobilizes 4 limbs. Skin is dry and warm. Bilateral pitting edema noticed. Neurological: No motor, no sensitive deficits, normal speech. Pupils are isocoric and reactive. Psych/Mental Status: A/Ox4 laboratory and microbiology Laboratory Tests 06/08/24 06:18 Test 06/08/24 06:18 Range/Units Serum Glucose 146 H 74-106 mg/dL Labs and/or images reviewed: Labs reviewed by me, Image(s) reviewed by me Problem List/Assessment/Plan Problem List/Assessment/Plan Probable upper GI bleeding Protonix IV 40 mg b.i.d. Clear liquid diet Occult blood positive GI consulted Rule out C diff Reports recent hospitalization or antibiotic use Testing pending Acute anemia-normocytic secondary to questionable GI blood loss H&H 9.04/11 H&H on 05/27-hemoglobin 13/hematocrit 31 Iron normal, TIBC low normal, % saturation normal Retic count pending LDH pending Questionable Acute on chronic CHF exacerbation status post ppm placement at [facility] 03/2024 Chest x-ray revealed mild pulmonary vascular congestion Lasix 20 mg IV b.i.d. BNP 76 Echo pending Last known echo 11/04 showed LVEF 61%, RVSP 40 mmHg Hyperkalemia-resolved Received 1 dose of Lokelma Critical aortic stenosis status post TAVR - February 2024 at [facility] Echocardiogram pending Metastatic Prostate cancer to his spine and ribs Patient is planned for CTX next month at [facility] Continue home medication - Extandi 40 mg 4 capsules a day History of liver cirrhosis CT 05/27/2023 shows cirrhotic liver morphology. No ascites or discrete lesions. Outpatient workup advised History of stroke History of osteoporosis with history of rib and hip fracture last year Continue home medication alendronate 70 mg p.o. daily Hypothyroidism Continue home medication levothyroxine 50 mcg daily History of esophagitis Pantoprazole clinical services specialist consulted for transfer to [facility] Physical therapy consult Diet Clear liquid DVT prophylaxis SCDs. Lovenox on hold given the suspected GI bleed Plan discussed with patient in which all questions have been answered Goals of care discussed with the patient for 20 minutes, full code status Case discussed with Dr. Angel. GI consulted given the occult blood positive. Plan discussed with: Patient, Other (RN) My Orders My Orders Orders - SABA CARPENTER Procedure Category Date Status Time Free T3 LAB 06/08/24 In Process 10:37 Free T4 (Free LAB 06/08/24 In Process Thyroxine) 10:37 Pantoprazole PHA 06/08/24 In Process (Protonix) 22:00 Furosemide Injection PHA 06/08/24 In Process (Lasix Injection) 11:15 Clear Liq Diet DIET 06/08/24 Transmitted Lunch Clostridium Difficile GERMÁN 06/08/24 In Process Toxin 12:33 Stool Bacterial GERMÁN 06/08/24 In Process Culture 12:33 Stool Wbc LAB 06/08/24 In Process 11:12 Patients Own PHA 06/09/24 In Process Medication 10:00 Addendum Addendum Addendum I was physically present for the roberts portions of the service provided to patient by THE RESIDENT. I have reviewed the documentation, discussed the case with resident and agree with the resident's documentation except as noted. Also the patient's clinical case was discussed with the patient's nurse. This medical document was created using an electronic medical record system with computerized dictation system. Although this document has been carefully reviewed, there might still be some phonetic and typographical errors. These areas are purely typographical due to imperfections of the software programs, and do not reflect any compromise in the patient's medical care. Late signature. Date of Service: Jun 08, 2024 Billing Provider: VIK ANGEL MD Common Visit Codes: [id number] INP/OBS CARE(HIGH) Secondary Visit Codes: 24436-[id number] CARE PLAN 30 MINUTES (20 minutes) SABA CARPENTER RESIDENT Jun 08, 2024 16:12 VIK ANGEL MD Jun 09, 2024 06:04
[2024-06-08] MEDS: GABAPENTIN 100 MG CAP PO SCH (21:30)
[2024-06-09] VITALS (8 sets, daily range): BP systolic 99–125; BP diastolic 32–49; PULSE 60–72; RESP 16–21; TEMP 97.6–98.4; O2SAT 96–100
[2024-06-09] MEDS ORDERED: ALENDRONATE SODIUM 70 MG PO SCH (06:00)
[2024-06-09] MEDS ORDERED: [UNRECOGNIZED DRUG - OTHER] PO SCH (06:00)
[2024-06-09 06:57] LABS: Basophils # (auto) 0.1 10 ^3/uL (0-0.2); Basophils % (auto) 0.7 % (0.0-2.0); Lymphocytes # (auto) 2.4 10 ^3/uL (0.4-5.4); Monocytes # (auto) 0.9 10 ^3/uL (0-1.3); Neutrophils # (auto) 6.8 10 ^3/uL (1.6-8.6); White Blood Cell 10.3 10^3/uL (4.4-10.8)
[2024-06-09 06:59] LABS: Eosinophils # (auto) 0.2 10 ^3/uL (0-0.8); Eosinophils % (auto) 1.5 % (0.0-7.0); Hematocrit 24.1 % (41.0-53.0); Lymphocytes % (auto) 23.1 % (10.0-50.0); Mean Corpuscular Hemoglobin 28.9 pg (28.0-32.0); Mean Corpuscular Hgb Conc. 33.3 g/dL (32.0-36.0); Mean Corpuscular Volume 86.9 fL (80.0-100.0); Monocytes % (auto) 8.4 % (0.0-12.0); Neutrophils % (auto) 66.3 % (37.0-80.0); Nucleated Red Blood Cells % 0.3 %; Platelet Count (auto) 274 10^3/uL (140-450); Red Blood Cells 2.77 10^6/uL (4.5-5.90); Red Cell Distribution Width 14.3 % (11.8-14.3)
[2024-06-09] MEDS: LORATADINE 10 MG TAB PO SCH (08:44)
--- NOTE | 2024-06-09 10:34 | DVHSR ---
APPROVED REPORT EXAM: LIMITED Two-dimensional and M-mode echocardiogram. Blood Pressure: 116/53 mmHg INDICATION Severe Surgery/Intervention Valve Replacement: Type: TAVR DIMENSIONS LVDd5.0 (3.8-5.7cm)LA (2D) (1.9-4.0cm)Aortic Root (2.0-3.7cm) LVDs3.7 (2.5-4.0cm)LA (MM) (1.9-4.0cm)Aortic Cusp Exc (1.5-2.0cm) EF (%) 50.0 (55-70%)Rt. Atrium (1.9-4.0cm)Asc. Aorta cm Mitral Valve MitralMitral Stenosis E wave1.00m/sMV Mean GR.mmHg A wave1.70m/sMV Peak GR.mmHg E/A ratio0.62D MVAcm2 Aortic Valve Aortic ValveAortic Stenosis V10.80m/Sruthi Mean GR.4mmHg V21.20m/Sruthi Peak GR.6mmHg Other Information Quality : Technically LimitedRhythm : Technically limited study due to body habitus. Conclusion Technically challenging study. Due to patient body habitus. Grossly normal left ventricular size and dimension normal left systolic function estimated ejection 5 5%. There is a grade 1 diastolic dysfunction. Normal right ventricular size and dimension. Normal right ventricular systolic function. A bioprosthetic aortic valve likely transcutaneous aortic valve replacement normal function and peak gradient of 6 mm of mercury. No significant paravalvular leak or intra valvular regurgitation. Mitral valve appears mildly thickened with can not be fully visualized. Can not visualize tricuspid valve or pulmonary valve No significant pericardial effusion.
--- NOTE | 2024-06-09 14:59 | DVHINCON2 ---
Date of service: Jun 09, [address] Estrada Reason for Consultation GI bleed History of Present Illness The patient is an 83-year-old man with past medical history significant for prostate cancer, hypertension, CVA, history of aortic valve replacement, CHF, admitted with complaints of dark stools, shortness of breath, dizziness, nausea and sweating. Patient was found to be anemic. He has a history of prostate cancer with metastases to the spine and ribs. Patient is on chemotherapy for this. Patient had minor chest pressure as well as shortness of breath. He has been on home oxygen. Patient has no prior history of GI bleed. He has had endoscopy and colonoscopy more than 10 years ago. He denies any dysphagia or odynophagia, hematemesis, or hematochezia. Patient has been on NSAIDs but denies any blood thinner usage. Patient also has been having some epigastric abdominal pain. Past Medical History As above Past Surgical History Pacemaker AVR Family History: Osteoporosis G8 MOTHER Allergies: Coded Allergies: Acetaminophen (Verified Allergy, Unknown, 01/29/24) Hydrocodone (Verified Allergy, Unknown, 01/29/24) Iodine (Verified Allergy, Unknown, 04/24/23) Home Meds Active Scripts Oxycodone W/ Acetaminophen (Percocet 5/325MG) 1 Tab Tb, 1 TAB PO TID PRN for 10 Days, #30 TAB Prov:TOSHA SOSA MD 05/27/24 Famotidine (PEPCID TABLET) 20 Mg Tb, 1 TAB PO BID for 20 Days, #40 TAB 5 Refills Prov:TOSHA SOSA MD 05/27/24 Diclofenac Potassium (Diclofenac Potassium) 50 Mg Tab, 1 TAB PO TIDP for 10 Days, #30 TAB Prov:TOSHA SOSA MD 05/27/24 Reported Medications Mirabegron Base (MYRBETRIQ) 25 Mg Tab, 25 MG OR DAILY, TAB 11/11/23 Alendronate Sodium (Alendronate Sodium) 70 Mg Tab, 1 TAB PO QWEEKLY, #4 TAB 3 Refills 11/11/23 Sennosides-Docusate Sodium (Senna Plus 8.6-50 mg) 1 Tab Tab, 1 TAB PO QHSP for C ONSTIPATION, TAB 11/11/23 Bisoprolol Fumarate (Bisoprolol Fumarate) 5 Mg Tab, 1 TAB PO DAILY for HEART FAILURE, #30 TAB 5 Refills 11/11/23 Cyanocobalamin (Gnp B-12) 2,500 Mcg Sub, 2500 MCG SL DAILY, INJ 11/11/23 [place]-3 Fatty Acids (FISH OIL) 1,000 Mg Cap, 1000 MG PO DAILY, CAP 11/11/23 Escitalopram Oxalate (ESCITALOPRAM OXALATE) 10 Mg Tab, 1 TAB PO DAILY for DEPRESSION, #30 TAB 3 Refills 11/11/23 Duloxetine Hcl (Cymbalta) 20 Mg Cap, 1 CAP PO DAILY, #30 CAP 2 Refills 11/11/23 Cetirizine Hcl (Kls Aller-Chanda) 10 Mg Tab, 1 TAB PO QAM, #30 TAB 3 Refills 11/11/23 Levothyroxine Sodium (Levothyroxine Sodium) 50 Mcg Tab, 50 MCG PO QAM, TAB 11/11/23 Gabapentin (Gabapentin) 100 Mg Cap, 100 MG PO QHSP for 30 Days, MG 11/11/23 Duloxetine HCl (Duloxetine HCl) 60 Mg Cap, 1 CAP PO DAILY 11/11/23 Current Medications Current Medications Medications (Trade) Dose Ordered Sig/Nga Route PRN Reason Start Time Stop Time Status Last Admin Gabapentin (Neurontin Capsule) 100 mg QHSP PO 06/08/24 22:00 06/08/24 21:30 Patient Own Medication 1 tab QWEEKLY PO 06/09/24 06:00 06/09/24 09:07 DC Loratadine (Claritin Tablet) 10 mg DAILY PO 06/09/24 10:00 06/09/24 09:07 DC 06/09/24 08:44 Pantoprazole Sodium (Protonix) 40 mg BID IV 06/08/24 22:00 06/09/24 08:45 Patient Own Medication 1 DAILY PO 06/09/24 10:00 06/09/24 08:45 Review of Systems Review of systems as per HPI Prostate cancer Heart disease, CHF, History of CVA GI bleed 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 Vital Signs Vital Signs Date Time Temp Pulse Resp B/P (MAP) Pulse Ox O2 Delivery O2 Flow Rate FiO2 06/09/24 12:30 97.7 66 21 99/41 (60) 98 97.7 06/09/24 07:44 Nasal Cannula* 2 28 Physical Exam Alert, elderly male lying in bed NC/AT, EOMI, PERRLA oropharynx clear Regular rate rhythm Clear to auscultation anteriorly Soft nontender nondistended Multiple bruises upper extremity, no clubbing cyanosis or edema Labs/Diagnostic Data Labs Test 06/09/24 06:18 06/08/24 13:39 06/08/24 11:58 06/08/24 06:18 Range/Units White Blood Count 10.3 4.4-10.8 10^3/uL Red Blood Count 2.77 L 4.5-5.90 10^6/uL Hemoglobin 8.0 #L 13.5-17.5 g/dL Hematocrit 24.1 #L 41.0-53.0 % Mean Corpuscular Volume 86.9 80.0-100.0 fL Mean Corpuscular Hemoglobin 28.9 28.0-32.0 pg Mean Corpuscular Hemoglobin Concent 33.3 32.0-36.0 g/dL Red Cell Distribution Width 14.3 11.8-14.3 % Platelet Count 274 140-450 10^3/uL Mean Platelet Volume 8.0 6.9-10.8 fL Neutrophils (%) (Auto) 66.3 37.0-80.0 % Lymphocytes (%) (Auto) 23.1 10.0-50.0 % Monocytes (%) (Auto) 8.4 0.0-12.0 % Eosinophils (%) (Auto) 1.5 0.0-7.0 % Basophils (%) (Auto) 0.7 0.0-2.0 % Neutrophils # (Auto) 6.8 1.6-8.6 10 ^3/uL Lymphocytes # (Auto) 2.4 0.4-5.4 10 ^3/uL Monocytes # (Auto) 0.9 0-1.3 10 ^3/uL Eosinophils # (Auto) 0.2 0-0.8 10 ^3/uL Basophils # (Auto) 0.1 0-0.2 10 ^3/uL Nucleated Red Blood Cells 0.3 % Troponin I High Sensitivity 34 </=54 ng/L Stool Occult Blood Positive Negative Stool Occult Blood Sample #3 Negative Stool for White Cells None seen Prothrombin Time 11.1 9.3-11.8 sec Prothrombin Time INR 1.05 0.9-1.15 Activated Partial Thromboplast Time 27.0 24.5-34.5 SEC Sodium Level 139 136-145 mmol/L Potassium Level 4.8 3.5-5.1 mmol/L Chloride Level 108 H 98-107 mmol/L Carbon Dioxide Level 26 20-31 mmol/L Anion Gap 5 5-15 Blood Urea Nitrogen 43 #H 9-23 mg/dL Creatinine 0.94 0.700-1.30 mg/dL Glomerular Filtration Rate Calc 81 >90 mL/min BUN/Creatinine Ratio 45.7 H 10.0-20.0 Serum Glucose 146 H 74-106 mg/dL Hemoglobin A1c 5.5 <5.7 % A1C Calcium Level 9.1 8.7-10.4 mg/dL Magnesium Level 2.3 1.6-2.6 mg/dL Iron Level 92 65-175 ug/dL Total Iron Binding Capacity 262 250-425 ug/dL Percent Iron Saturation 35.1 20-55 % Total Bilirubin 0.3 0.2-1.0 mg/dL Aspartate Amino Transferase (AST) 18 13-40 U/L Alanine Aminotransferase (ALT) 10 7-40 U/L Alkaline Phosphatase 98 46-116 U/L B-Type Natriuretic Peptide 71.75 0-100 pg/mL Total Protein 5.9 5.7-8.2 g/dL Albumin 3.4 3.2-4.8 g/dL Vitamin B12 Level 1053 H 211-911 pg/mL Vitamin D 25-Hydroxy 55.6 30.0-100 ng/mL Thyroid Stimulating Hormone (TSH) 5.29 H 0.55-4.78 uIU/mL Microbiology Date/Time Source Procedure Growth Status 06/08/24 11:58 Stool Stool Culture - Preliminary Resulted 06/08/24 11:58 Stool Shiga Toxin I & II - Final Resulted 06/08/24 11:58 Stool Clostridium difficile Toxin Assay Pending Resulted Assessment 1. Presyncope 2. GI bleed 3. Anemia 4. . NSAID use Plan/Recommendation 1. Protonix twice daily 2. Follow H&H and transfuse 3. Patient will need endoscopy during this hospitalization 4. Diet as tolerated 5. NPO after midnight Plan discussed with: Patient, Daughter PAWANCHRISTINAERIN Pollock MD Jun 09, 2024 14:59
[2024-06-09] MEDS: ACETAMINOPHEN 325 MG TAB PO PRN (15:00)
--- NOTE | 2024-06-09 19:38 | DVHPNRES ---
Progress Note Date Seen: Jun 09, 2024 Resident Creating Document: CHAYITO COSME RESIDENT Medical Necessity Reason Pt with a Central, PICC or Fol: No Subjective Review of Systems Patient seen and examined at bedside Currently on 2 L of oxygen through nasal cannula Patient mentioned that he had an episode of melena this morning, denied dizziness, shortness of breath ROS Constitutional: No: Fever, Chills, Sweats, Weakness, Malaise, Other Eyes: No: Pain, Vision change, Conjunctivae inflammation, Eyelid inflammation, Other, Redness ENT: No: Ear pain, Ear discharge, Nose pain, Nose discharge, Nose congestion, Mouth pain, Mouth swelling, Throat pain, Throat swelling, Other Respiratory: No: Cough, Dry, Shortness of breath, SOB with excertion, Wheezing, Hemoptysis, Pleuritic Pain, Sputum, Wheezing, Other Cardiovascular: No: Chest Pain, Palpitations, Orthopnea, Paroxysmal Noc. Dyspnea, Edema, Lt Headedness, Other Gastrointestinal: Melena No: Nausea, Vomiting, Abdominal Pain, Diarrhea, Constipation,Hematochezia, Other Musculoskeletal: No: other, neck pain, shoulder pain, arm pain, back pain, hand pain, leg pain, foot pain Neurological:; No: Weakness, Numbness, Incoordination, Change in speech, Confusion, Seizures Objective vital signs Vital Sign Date Time Temp Pulse Resp B/P (MAP) Pulse Ox O2 Delivery O2 Flow Rate FiO2 06/09/24 17:33 100/36 06/09/24 16:53 98.4 60 19 96 98.4 06/09/24 07:44 Nasal Cannula* 2 28 Total Intake and Output 06/08/24 06/08/24 06/09/24 15:00 23:00 07:00 Intake Total 480 ml 550 ml Balance 480 ml 550 ml medications Current Medications Medications Dose Ordered Sig/Nga Route Start Time Stop Time Status Last Admin Dose Admin Sodium Chloride 10 ml Q8HR IV 06/08/24 06:00 06/09/24 14:00 10 ML Acetaminophen 325 mg Q4HP PRN PO 06/07/24 22:15 06/09/24 15:00 325 MG Ondansetron HCl 4 mg Q4HP PRN IV 06/07/24 22:15 06/08/24 08:55 4 MG Nitroglycerin 0.4 mg Q5MINP PRN SL 06/07/24 22:15 Morphine Sulfate 2 mg Q30M PRN IV 06/07/24 22:15 Gabapentin 100 mg QHSP PO 06/08/24 22:00 06/08/24 21:30 100 MG Levothyroxine Sodium 50 mcg QAM PO 06/08/24 07:00 06/09/24 06:15 50 MCG Oxycodone/ Acetaminophen 1 tab TID PRN PO 06/08/24 00:00 Atenolol 50 mg DAILY PO 06/08/24 10:00 06/09/24 08:45 50 MG Cyanocobalamin 2,500 mcg DAILY PO 06/08/24 10:00 06/09/24 08:44 2,500 MCG Citalopram Hydrobromide 20 mg DAILY PO 06/08/24 10:00 06/09/24 08:44 20 MG Patient Own Medication 25 mg DAILY PO 06/08/24 10:00 Pantoprazole Sodium 40 mg BID IV 06/08/24 22:00 06/09/24 08:45 40 MG Furosemide 20 mg BIDD IV 06/08/24 11:15 06/09/24 06:17 20 MG Patient Own Medication 1 DAILY PO 06/09/24 10:00 06/09/24 08:45 1 Examination Examination General Appearance: Alert, Oriented X3, Cooperative, No acute distress, on 2 L of oxygen through nasal cannula HEENT: EOMI Respiratory: Clear to auscultation, Normal air movement Cardiovascular: Regular rate, Normal S1, Normal S2 Abdominal: Normal bowel sounds Extremities: No cyanosis, No edema, Normal pulses, No tenderness/swelling Skin: No rashes, No breakdown Neuro: Normal speech and tone laboratory and microbiology Laboratory Tests 06/09/24 06:18 06/08/24 06:18 Test 06/08/24 06:18 Range/Units Serum Glucose 146 H 74-106 mg/dL Microbiology Date/Time Source Procedure Growth Status 06/08/24 11:58 Stool Stool Culture - Preliminary Resulted 06/08/24 11:58 Stool Shiga Toxin I & II - Final Resulted 06/08/24 11:58 Stool Clostridium difficile Toxin Assay - Final Resulted Labs and/or images reviewed: Labs reviewed by me, Image(s) reviewed by me Problem List/Assessment/Plan Problem List/Assessment/Plan Assessment/plan # Active GI bleed, likely upper GI bleed , history of esophagitis Protonix 40 mg IV b.i.d. Clear liquid diet FOBT positive GI on board Patient planned for EGD tomorrow morning NPO after midnight #history of esophagitis -Protonix 40 mg IV b.i.d. # intractable diarrhea -stool studies including C diff # normocytic anemia secondary to GI bleed; significant drop in hemoglobin -monitor H&H Transfusion to Keep hemoglobin greater than 8 #Questionable Acute on chronic heart failure with preserved ejection fraction exacerbation Chest x-ray revealed mild pulmonary vascular congestion Lasix 20 mg IV b.i.d. BNP 76 Echo pending Last known echo 11/04 showed LVEF 61%, RVSP 40 mmHg #Pacemaker placement 03/2024 -currently on telemetry # hyperkalemia Corrected Monitor BMP #Critical aortic stenosis status post TAVR - February 2024 Echocardiogram reviewed #Metastatic Prostate cancer to his spine and ribs Patient is planned for CTX next month at [facility] Continue home medication - Extandi 40 mg 4 capsules a day #liver cirrhosis -seen on previous imaging #History of stroke -will resume aspirin after Resolution of gi bleed #History of osteoporosis with history of rib and hip fracture last year stop alendronate 70 mg p.o. daily considering gi bleed and history of esophagitis Hypothyroidism Continue home medication levothyroxine 50 mcg daily #DVT prophylaxis SCDs. Lovenox on hold given the GI bleed Goals of care discussed with the patient and his family for 20 minutes; full code 66 minutes of critical care time Unstable to transfer to [facility] Case discussion with Dr. Angel Plan discussed with: Patient, Daughter, Son, Other (RN) Critical Care Time (mins): 66 Addendum Addendum Addendum I was physically present for the roberts portions of the service provided to patient by THE RESIDENT. I have reviewed the documentation, discussed the case with resident and agree with the resident's documentation except as noted. Also the patient's clinical case was discussed with the patient's nurse. This medical document was created using an electronic medical record system with computerized dictation system. Although this document has been carefully reviewed, there might still be some phonetic and typographical errors. These areas are purely typographical due to imperfections of the software programs, and do not reflect any compromise in the patient's medical care. Late signature. Date of Service: Jun 09, 2024 Billing Provider: VIK ANGEL MD Common Visit Codes: [id number] CARE 30-74 MIN (66 minutes) Secondary Visit Codes: [id number] CARE PLAN 30 MINUTES (20 minutes) CHAYITO COSME RESIDENT Jun 09, 2024 19:38 VIK ANGEL MD Jun 10, 2024 09:55
[2024-06-10] VITALS (10 sets, daily range): BP systolic 102–132; BP diastolic 37–58; PULSE 58–68; RESP 15–19; TEMP 97.8–98; O2SAT 97–100
[2024-06-10 06:26] LABS: Basophils # (auto) 0.1 10 ^3/uL (0-0.2); Eosinophils # (auto) 0.2 10 ^3/uL (0-0.8); Hemoglobin 7.8 g/dL (13.5-17.5); Monocytes # (auto) 0.8 10 ^3/uL (0-1.3); Neutrophils # (auto) 4.5 10 ^3/uL (1.6-8.6)
[2024-06-10 06:29] LABS: Basophils % (auto) 0.9 % (0.0-2.0); Eosinophils % (auto) 2.8 % (0.0-7.0); Hematocrit 23.2 % (41.0-53.0); Lymphocytes # (auto) 1.8 10 ^3/uL (0.4-5.4); Lymphocytes % (auto) 24.4 % (10.0-50.0); Mean Corpuscular Hemoglobin 29.3 pg (28.0-32.0); Mean Corpuscular Hgb Conc. 33.7 g/dL (32.0-36.0); Mean Corpuscular Volume 86.9 fL (80.0-100.0); Monocytes % (auto) 11.1 % (0.0-12.0); Neutrophils % (auto) 60.8 % (37.0-80.0); Nucleated Red Blood Cells % 0.3 %; Platelet Count (auto) 273 10^3/uL (140-450); Red Blood Cells 2.67 10^6/uL (4.5-5.90); Red Cell Distribution Width 14.1 % (11.8-14.3); White Blood Cell 7.4 10^3/uL (4.4-10.8)
[2024-06-10 06:32] LABS: Anion Gap 4 (5-15); Carbon Dioxide 30 mmol/L (20-31); Chloride 106 mmol/L (98-107); Potassium 3.9 mmol/L (3.5-5.1); Sodium 140 mmol/L (136-145)
[2024-06-10 06:34] LABS: Calcium 8.8 mg/dL (8.7-10.4)
[2024-06-10 06:38] LABS: Glucose 105 mg/dL (74-106)
[2024-06-10 06:39] LABS: BUN/Creatinine Ratio 30.4 (10.0-20.0); Blood Urea Nitrogen 28 mg/dL (9-23); Magnesium 2.3 mg/dL (1.6-2.6)
[2024-06-10] MEDS ORDERED: SODIUM CHLORIDE LOCK 10 ML ONE (09:42)
[2024-06-10] MEDS ORDERED: fentaNYL CITRATE 100 MCG/2 ML VL ONE (09:43)
[2024-06-10 10:43] LABS: Free T3 2.08 pg/mL (2.3-4.2)
[2024-06-10 10:44] LABS: Free T4 (Free Thyroxine) 0.73 ng/dL (0.89-1.76)
[2024-06-10] MEDS: MIDAZOLAM HCL 5 MG/ML-1ML VIAL ONE (14:29)
--- NOTE | 2024-06-10 14:40 | DVHNC2 ---
Procedure - Date of Procedure: 06/10/2024 Performed by: Dr Erin Matthews Procedure performed: 1. Esophagogastroduodenoscopy with biopsy under conscious sedation Pre-procedure diagnosis: 1. GI bleed 2.Anemia Postprocedure diagnosis: 1. Large gastric ulcer and smaller gastric ulcers in the pre-pyloric antrum 2.Mild Esophagitis Indications for procedure: The patient is a 83 year old male who presents egd for anemia and gi bleed Medications used: 5 mg of Versed 50mcg of Fentanyl IV Details of the procedure: Informed consent was obtained after risks benefits and alternatives were discussed at length with the patient, patient gave consent to the procedure as well as a medication used for sedation. The patient was made aware of the risks of bleeding, infection, perforation, need for emergency surgery, and . Patient was placed in the left lateral decubitus position. An Olympus endoscope was inserted into the oropharynx advanced into the esophagus, then into the duodenal bulb and duodenum. The scope was then withdrawn and mucosa carefully evaluated. The patient had multiple large ulcers and small ulcers. Biopsies were taken of one in the prepyloric antrum. All ulcers were Isreal Class III. Retroflexion showed no abnormalities. There was mild esophagitis at the GE junction. The patient tolerated the procedure well. Impression: 1. Mild esophagitis 2.At least 4 ulcers in the antrum--one giant one measuring 4 cm with large borders, biopsied Bleeding due to ulcers and nsaid use RECS: 1. PPi daily bid and carafate 2. Follow up with [facility] 3. Follow up in [place] with GI 4. Repeat EGD to ensure healing in 2 months or PRN 5.Hold NSAIDs until after repeat EGD in 2 months ERIN MATTHEWS MD Jun 10, 2024 14:40
[2024-06-10 15:21] LABS: Urine Bacteria None Seen /hpf (None Seen)
[2024-06-10 15:34] LABS: Urine Blood Negative /uL (Negative); Urine Clarity Clear (Clear); Urine Color Yellow (Yellow); Urine Mucus FEW (None Seen); Urine Protein, UAD TRACE (Negative); Urine Specific Gravity 1.025 (1.001-1.035); Urine Urobilinogen Normal (Negative); Urine WBC 2 /hpf (0 - 3); Urine pH 5.5 (5.0-9.0)
--- NOTE | 2024-06-10 15:43 | DVHDSRES ---
Discharge Summary Date of Admission Resident Creating Document: SABA CARPENTER RESIDENT Jun 07, 2024 at 22:03 Date of Discharge: Jun 10, 2024 Admitting Diagnosis Dizziness, abdominal pain, diarrhea Labs/Diagnostic Data: Laboratory Results Test 06/10/24 15:19 06/10/24 05:19 06/08/24 13:39 06/08/24 11:58 Urine Color Yellow (Yellow) Urine Clarity Clear (Clear) Urine pH 5.5 (5.0-9.0) Urine Specific Bill[place] 1.025 (1.001-1.035) Urine Protein Trace (Negative) Urine Ketones Negative (Negative) Urine Blood Negative /uL (Negative) Urine Nitrite Negative (Negative) Urine Bilirubin Negative (Negative) Urine Urobilinogen Normal mg/dL (Negative) Urine Leukocyte Esterase Negative /uL (Negative) Urine RBC 1 /hpf (0 - 3) Urine WBC 2 /hpf (0 - 3) Urine Squamous Epithelial Cells Few /hpf (<5) Urine Bacteria None seen /hpf (None Seen) Urine Mucus Few (None Seen) Urine Glucose Normal mg/dL (Normal) White Blood Count 7.4 10^3/uL (4.4-10.8) Red Blood Count 2.67 10^6/uL (4.5-5.90) Hemoglobin 7.8 g/dL (13.5-17.5) Hematocrit 23.2 % (41.0-53.0) Mean Corpuscular Volume 86.9 fL (80.0-100.0) Mean Corpuscular Hemoglobin 29.3 pg (28.0-32.0) Mean Corpuscular Hemoglobin Concent 33.7 g/dL (32.0-36.0) Red Cell Distribution Width 14.1 % (11.8-14.3) Platelet Count 273 10^3/uL (140-450) Mean Platelet Volume 8.2 fL (6.9-10.8) Neutrophils (%) (Auto) 60.8 % (37.0-80.0) Lymphocytes (%) (Auto) 24.4 % (10.0-50.0) Monocytes (%) (Auto) 11.1 % (0.0-12.0) Eosinophils (%) (Auto) 2.8 % (0.0-7.0) Basophils (%) (Auto) 0.9 % (0.0-2.0) Neutrophils # (Auto) 4.5 10 ^3/uL (1.6-8.6) Lymphocytes # (Auto) 1.8 10 ^3/uL (0.4-5.4) Monocytes # (Auto) 0.8 10 ^3/uL (0-1.3) Eosinophils # (Auto) 0.2 10 ^3/uL (0-0.8) Basophils # (Auto) 0.1 10 ^3/uL (0-0.2) Nucleated Red Blood Cells 0.3 % Sodium Level 140 mmol/L (136-145) Potassium Level 3.9 mmol/L (3.5-5.1) Chloride Level 106 mmol/L (98-107) Carbon Dioxide Level 30 mmol/L (20-31) Anion Gap 4 (5-15) Blood Urea Nitrogen 28 mg/dL (9-23) Creatinine 0.92 mg/dL (0.700-1.30) Glomerular Filtration Rate Calc 83 mL/min (>90) BUN/Creatinine Ratio 30.4 (10.0-20.0) Serum Glucose 105 mg/dL (74-106) Calcium Level 8.8 mg/dL (8.7-10.4) Magnesium Level 2.3 mg/dL (1.6-2.6) Troponin I High Sensitivity 34 ng/L (</=54) Stool Occult Blood Positive (Negative) Stool Occult Blood Sample #3 (Negative) Stool for White Cells None seen Test 06/08/24 06:18 Prothrombin Time 11.1 sec (9.3-11.8) Prothrombin Time INR 1.05 (0.9-1.15) Activated Partial Thromboplast Time 27.0 SEC (24.5-34.5) Hemoglobin A1c 5.5 % A1C (<5.7) Iron Level 92 ug/dL (65-175) Total Iron Binding Capacity 262 ug/dL (250-425) Percent Iron Saturation 35.1 % (20-55) Total Bilirubin 0.3 mg/dL (0.2-1.0) Aspartate Amino Transferase (AST) 18 U/L (13-40) Alanine Aminotransferase (ALT) 10 U/L (7-40) Alkaline Phosphatase 98 U/L (46-116) B-Type Natriuretic Peptide 71.75 pg/mL (0-100) Total Protein 5.9 g/dL (5.7-8.2) Albumin 3.4 g/dL (3.2-4.8) Vitamin B12 Level 1053 pg/mL (211-911) Vitamin D 25-Hydroxy 55.6 ng/mL (30.0-100) Thyroid Stimulating Hormone (TSH) 5.29 uIU/mL (0.55-4.78) Free Thyroxine (T4) Calculated 0.73 ng/dL (0.89-1.76) Free Triiodothyronine (T3) pg/mL 2.08 pg/mL (2.3-4.2) Other Laboratory Tests 06/10/24 05:19 Brief Hx & Hospital Course: Pancho Brown is a 83-year-old male patient with PMHx of 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 Patient says that he usually has 2 bowel movements per day recently for the past 2 weeks he has been experiencing C to 4 bowel movements in a day associated with epigastric pain radiating to the back, tarry black stools for the past week, now have pain dark brown. He says that he was recently hospitalized and was receiving antibiotics but does not remember the details. Also reports shortness of breath on rest and exertion for the same duration but no orthopnea/PND. Patient also reported dizziness on rest and on standing up from the bed starting a week ago. Associated factors include nausea and cold sweating. Denies fever/chills. He underwent a colonoscopy and EGD less than 10 years ago which was positive for polyps but details unknown. During my initial H and P, patient was having repeated bowel movement which were dark brown, given the history of tarry black stool - occult blood was sent which was positive. Patient was started on IV Protonix 40 mg b.i.d. and clear liquid diet, alendronate medication was discontinued given the suspicion of gastritis versus esophagitis. GI was consulted and EGD was completed 06/10 which showed mild esophagitis and at least 4 ulcers in the antrum - 1 of them was giant ulcer measuring 4 cm with large borders which was biopsied. Patient was advised pantoprazole 40 mg p.o. twice daily along with Carafate, recommended outpatient follow up with [facility] and a follow up EGD in 2 months or p.r.n. patient was also advised to hold NSAIDs until after repeat EGD in 2 months. Everything was explained to the patient, his and his daughter present at bedside. Furthermore during the hospitalization be ruled out C diff/Shigella/Campylobacter given the stool culture was unremarkable NC diff studies were negative. Patient also had acute anemia-normocytic secondary to GI blood loss, iron panel was normal. He was also diagnosed with acute on chronic CHF exacerbation status post ppm placement at [facility] 03/2024, he was started on Lasix 20 mg IV b.i.d.. An echocardiogram was done which showed LVEF 55%. Grade 1 diastolic dysfunction. Normal RV SF. Bioprosthetic AV valve likely transcutaneous with normal function and peak gradient 6 mm of mercury. No regurgitation. Patient was hypokalemic on arrival and he was given 1 dose of Lokelma on admission which corrected his potassium. 06/10/24-patient is hemodynamically stable, clinically stable in his stable to be discharged. Patient is being discharged on pantoprazole 40 mg IV twice daily and Carafate. Advised to avoid NSAIDs and discontinued alendronate. Discharge planning completed with the patient's family present at bedside. Patient will be discharged to acute living facility. Stable to be discharged. Examination Elderly male patient lying in bed, in no acute distress General: Elderly, afebrile, palor, mucosae are moist Cardiovascular: Regular S1 and S2. No murmurs, gallops or rubs. No JVD elevation. No pedal edema Respiratory: Bilateral basilar crackles heard, saturating 94 on 2 L nasal cannula Abdomen: Soft, nontender, nondistended, normoactive bowel sounds, no rebound tenderness, no organomegaly, no masses Genitourinary: Deferred MSK/skin: Mobilizes 4 limbs. Skin is dry and warm. Bilateral pitting edema noticed. Neurological: No motor, no sensitive deficits, normal speech. Pupils are isocoric and reactive. Psych/Mental Status: A/Ox4 Consults/Reason for consult GI consulted for melena Operations or Procedures Procedure - Date of Procedure: 06/10/2024 Performed by: Dr Guru Matthews Procedure performed: 1. Esophagogastroduodenoscopy with biopsy under conscious sedation Pre-procedure diagnosis: 1. GI bleed 2.Anemia Postprocedure diagnosis: 1. Large gastric ulcer and smaller gastric ulcers in the pre-pyloric antrum 2.Mild Esophagitis Indications for procedure: The patient is a 83 year old male who presents egd for anemia and gi bleed Medications used: 5 mg of Versed 50mcg of Fentanyl IV Details of the procedure: Informed consent was obtained after risks benefits and alternatives were discussed at length with the patient, patient gave consent to the procedure as well as a medication used for sedation. The patient was made aware of the risks of bleeding, infection, perforation, need for emergency surgery, and . Patient was placed in the left lateral decubitus position. An Olympus endoscope was inserted into the oropharynx advanced into the esophagus, then into the duodenal bulb and duodenum. The scope was then withdrawn and mucosa carefully evaluated. The patient had multiple large ulcers and small ulcers. Biopsies were taken of one in the prepyloric antrum. All ulcers were Isreal Class III. Retroflexion showed no abnormalities. There was mild esophagitis at the GE junction. The patient tolerated the procedure well. Impression: 1. Mild esophagitis 2.At least 4 ulcers in the antrum--one giant one measuring 4 cm with large borders, biopsied Bleeding due to ulcers and nsaid use RECS: 1. PPi daily bid and carafate 2. Follow up with biospies 3. Follow up in [place] with GI 4. Repeat EGD to ensure healing in 2 months or PRN 5.Hold NSAIDs until after repeat EGD in 2 months GURU MATTHEWS MD Jun 10, 2024 14:40 US CAROTID DOPPLER CLINICAL INDICATION: dizziness TECHNIQUE: Multiple grayscale, color Doppler and spectral Doppler ultrasound images were obtained throughout both carotid systems. COMPARISON: US CAROTID DUPLX W COLOR DOP on DOS: 11/11/23 FINDINGS: RIGHT: CCA PSV: 80 cm/s ECA PSV: 112 cm/s ICA PSV: 155 cm/s ICA EDV: 32 cm/s ICA/CCA Ratio: 1.9 Vertebral artery: Patent, antegrade flow. Mild soft plaque at the carotid bulb. Grayscale images demonstrate no visible stenosis. Spectral analysis demonstrates no hemodynamically significant CCA or ICA stenosis. LEFT: CCA PSV: 89 cm/s ECA PSV: 159 cm/s ICA PSV: 137 cm/s ICA EDV: 17 cm/s ICA/CCA Ratio: 1.5 Vertebral artery: Patent, antegrade flow. Mild calcified plaque in the carotid bifurcation. Grayscale images demonstrate no visible stenosis. Spectral analysis demonstrates no hemodynamically significant CCA or ICA stenosis. IMPRESSION: No evidence of hemodynamically significant CCA or ICA stenosis. ATED BY: CARMEN PELAYO MD DICTATED DATE/TIME: 06/08/24307 SIGNED BY: CARMEN PELAYO MD SIGNED DATE/TIME: 06/08/24307 CC: Condition at Discharge: Stable Final Diagnosis/Problems List Upper GI bleed due to multiple gastric ulcer and esophagitis Ruled out C diff/Shigella/Campylobacter Acute anemia-normocytic secondary to questionable GI blood loss Acute on chronic CHF exacerbation status post ppm placement at [facility] 03/2024 Hx of Critical aortic stenosis status post TAVR - February 2024 at [facility] Metastatic Prostate cancer to his spine and ribs Hyperkalemia-resolved History of liver cirrhosis History of stroke History of osteoporosis with history of rib and hip fracture last year Hypothyroidism History of esophagitis Discharge Disposition: Acute Care Facility Discharge Instruct/Medications Activity: Light activity Follow Up/Referral: Follow up with primary care physician in 7-14 days Follow up with [facility] in 7-14 days Medications: Per EMR Discharge Statement: "Patient was advised to return to the ER or call 911 if any headaches, dizziness, shortness of breath, chest pain, abdominal pain, bleeding, fevers, or worsening of medical condition. Patient was counseled about treatment plan, medications, possible side effects, patientverbalized understanding. All questions were answered to the best of my ability. This discharge took greater then 30 minutes in planning, reviewing documentation, counseling the patient, and discussing with other team members." ASSESSMENT ASSESSMENT Assessment Date of Service: Jun 10, 2024 Billing Provider: SHERIF PATEL MD Common Visit Codes: 94491-PSK/OBS DISCH DAY >30min SABA CARPENTER RESIDENT Jun 10, 2024 15:43 SHERIF PATEL MD Jun 11, 2024 08:49
[2024-06-10] MEDS ORDERED: PANT40T PO (16:31)
[2024-06-10] MEDS ORDERED: SUCR1SUS26 PO (16:31)
--- NOTE | 2024-06-10 19:15 | DVHPNRES ---
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 Patient says that he usually has 2 bowel movements per day recently for the past 2 weeks he has been experiencing C to 4 bowel movements in a day associated with epigastric pain radiating to the back, tarry black stools for the past week, now have pain dark brown. He says that he was recently hospitalized and was receiving antibiotics but does not remember the details. Also reports shortness of breath on rest and exertion for the same duration but no orthopnea/PND. Patient also reported dizziness on rest and on standing up from the bed starting a week ago. Associated factors include nausea and cold sweating. Denies fever/chills. He underwent a colonoscopy and EGD less than 10 years ago which was positive for polyps but details unknown. Patient has a PCP at [facility], does not remember the name Social history Lives with daughter who is the caregiver Never smoked in her life, quit drinking 50 years back, denies illicit drug use Home medications: Patient does not remember, per EMR: Alendronate 70 mg, bisoprolol 5 mg, Percocet, senna, cetirizine, duloxetine, escitalopram, gabapentin, mirabegron, levothyroxine, citalopram Patient seen and examined at bedside. Underwent upper EGD today, 4 gastric ulcers noted. PPI 40 mg p.o. b.i.d. and Carafate. Objective vital signs Vital Sign Date Time Temp Pulse Resp B/P (MAP) Pulse Ox O2 Delivery O2 Flow Rate FiO2 06/10/24 17:35 65 06/10/24 17:00 97.8 17 104/42 (62) 100 97.8 06/10/24 14:43 Nasal Cannula 3.0 06/10/24 14:24 100 Total Intake and Output 06/09/24 06/09/24 06/10/24 15:00 23:00 07:00 Intake Total 860 ml 0 ml Balance 860 ml 0 ml medications Current Medications Medications Dose Ordered Sig/Nga Route Start Time Stop Time Status Last Admin Dose Admin Sodium Chloride 10 ml Q8HR IV 06/08/24 06:00 06/10/24 12:55 10 ML Acetaminophen 325 mg Q4HP PRN PO 06/07/24 22:15 06/09/24 15:00 325 MG Ondansetron HCl 4 mg Q4HP PRN IV 06/07/24 22:15 06/08/24 08:55 4 MG Gabapentin 100 mg QHSP PO 06/08/24 22:00 06/09/24 21:40 100 MG Levothyroxine Sodium 50 mcg QAM PO 06/08/24 07:00 06/09/24 06:15 50 MCG Oxycodone/ Acetaminophen 1 tab TID PRN PO 06/08/24 00:00 Atenolol 50 mg DAILY PO 06/08/24 10:00 06/10/24 09:14 50 MG Cyanocobalamin 2,500 mcg DAILY PO 06/08/24 10:00 06/10/24 09:13 2,500 MCG Citalopram Hydrobromide 20 mg DAILY PO 06/08/24 10:00 06/10/24 09:13 20 MG Patient Own Medication 25 mg DAILY PO 06/08/24 10:00 Pantoprazole Sodium 40 mg BID IV 06/08/24 22:00 06/10/24 09:13 40 MG Patient Own Medication 1 DAILY PO 06/09/24 10:00 06/10/24 09:13 1 Examination Elderly male patient lying in bed, in no acute distress General: Elderly, afebrile, palor, mucosae are moist Cardiovascular: Regular S1 and S2. No murmurs, gallops or rubs. No JVD elevation. No pedal edema Respiratory: Bilateral basilar crackles heard, saturating 94 on 2 L nasal cannula Abdomen: Soft, nontender, nondistended, normoactive bowel sounds, no rebound tenderness, no organomegaly, no masses Genitourinary: Deferred MSK/skin: Mobilizes 4 limbs. Skin is dry and warm. Bilateral pitting edema noticed. Neurological: No motor, no sensitive deficits, normal speech. Pupils are isocoric and reactive. Psych/Mental Status: A/Ox4 laboratory and microbiology Laboratory Tests 06/10/24 05:19 Test 06/10/24 05:19 Range/Units Serum Glucose 105 74-106 mg/dL Microbiology Date/Time Source Procedure Growth Status 06/08/24 11:58 Stool Stool Culture - Final Complete 06/08/24 11:58 Stool Shiga Toxin I & II - Final Complete 06/08/24 11:58 Stool Clostridium difficile Toxin Assay - Final Complete Labs and/or images reviewed: Labs reviewed by me, Image(s) reviewed by me Problem List/Assessment/Plan Problem List/Assessment/Plan Upper GI bleeding due to gastric ulcer and esophagitis Protonix IV 40 mg b.i.d. Clear liquid diet Occult blood positive GI consulted - EGD completed 06/10 showed mild esophagitis, at least for ulcers in the antrum-one giant ulcer measuring 4 cm with large borders, biopsied Pantoprazole 40 mg p.o. b.i.d. and Carafate Outpatient follow up with [facility], follow up EGD in 2 months or p.r.n.. Hold NSAIDs until after repeat EGD in 2 months. Ruled out C diff/Shigella/Campylobacter Reports recent hospitalization or antibiotic use Stool culture is unremarkable Acute anemia-normocytic secondary to questionable GI blood loss H&H 9.04/11 H&H on 05/27-hemoglobin 13/hematocrit 31 Iron normal, TIBC low normal, % saturation normal Questionable Acute on chronic CHF exacerbation status post ppm placement at [facility] 03/2024 Chest x-ray revealed mild pulmonary vascular congestion Lasix 20 mg IV b.i.d. BNP 76 Echocardiogram LVEF 55%. Grade 1 diastolic dysfunction. Normal RV SF. Bioprosthetic AV valve likely transcutaneous with normal function and peak gradient 6 mm of mercury. No regurgitation. Last known echo 11/04 showed LVEF 61%, RVSP 40 mmHg Hyperkalemia-resolved Received 1 dose of Lokelma on admission Critical aortic stenosis status post TAVR - February 2024 at [facility] Echocardiogram LVEF 55%. Grade 1 diastolic dysfunction. Normal RV SF. Bioprosthetic AV valve likely transcutaneous with normal function and peak gradient 6 mm of mercury. No regurgitation. Metastatic Prostate cancer to his spine and ribs Patient is planned for CTX next month at [facility] Continue home medication - extandi 40 mg 4 capsules a day History of liver cirrhosis CT 05/27/2023 shows cirrhotic liver morphology. No ascites or discrete lesions. Outpatient workup advised History of stroke PT on the case History of osteoporosis with history of rib and hip fracture last year Discontinue home medication alendronate 70 mg p.o. daily given the esophagitis/gastritis Hypothyroidism TSH 5, low T4 and low T3 - advised the patient to up titrate his levothyroxine by his primary care physician Continue home medication levothyroxine 50 mcg daily History of esophagitis Pantoprazole director professional services consulted for transfer to [facility] Physical therapy consult Diet Clear liquid DVT prophylaxis Lovenox on hold given the suspected GI bleed Plan discussed with patient, daughter, at bedside in which all questions have been answered Goals of care discussed with the patient for more than 22 minutes, full code status Case discussed with Dr. Alvarez Patient is stable to be discharged to acute care facility. Plan discussed with: Patient, Spouse, Daughter My Orders My Orders Orders - SABA CARPENTER Procedure Category Date Status Time Discontinue Tele SARAH 06/10/24 In Process 14:46 Transfer Orders XFER 06/10/24 Transmitted 14:46 Discharge DISCHARGE 06/10/24 Transmitted 15:43 Schedule For Dc SARAH 06/10/24 In Process Clinic F/U 15:43 Date of Service: Jun 10, 2024 Billing Provider: SHEIRF ALVAREZ MD Common Visit Codes: [id number] INP/OBS CARE(HIGH) SABA CARPENTER Jun 10, 2024 19:15 SHERIF ALVAREZ MD Jun 11, 2024 08:47
[2024-06-10] MEDS: PANTOPRAZOLE 40 MG TAB PO SCH (21:37)
[2024-06-10] MEDS: SUCRALFATE 1 GM TAB PO SCH (21:37)
[2024-06-11 01:00] VITALS: BP 97/41; PULSE 64; RESP 16; O2SAT 98
[2024-06-11 05:00] VITALS: BP 103/40; PULSE 64; RESP 20; TEMP 97.8; O2SAT 96
[2024-06-11 08:00] VITALS: PULSE 60; RESP 18
[2024-06-11 08:37] VITALS: BP 104/48; PULSE 60; RESP 19; TEMP 97.8; O2SAT 99
[2024-06-11] MEDS: OXYCODONE W/ ACETAMINOPHEN 5/325MG TABLET PO PRN (09:50)
--- NOTE | 2024-06-11 10:00 | DVHPNRES ---
Progress Note Date Seen: Jun 11, 2024 Resident Creating Document: SABA CARPENTER RESIDENT Medical Necessity Reason Pt with a Central, PICC or Fol: No Subjective Review of Systems This is a 83-year-old male patient with PMHx of metastatic prostate cancer to the spine and ribs planning CTX soon at [facility], history of stroke with a residual weakness and urinary/bowel incontinence, critical aortic stenosis status post TAVR 2023, CHF status post biosci ppm placement, liver cirrhosis, history of esophagitis, osteoporosis with history of rib and hip fracture last year presented to the ER with a chief complaint of dizziness, shortness of breath, abdominal pain and diarrhea. Patient says that he usually has 2 bowel movements per day recently for the past 2 weeks he has been experiencing C to 4 bowel movements in a day associated with epigastric pain radiating to the back, tarry black stools for the past week, now have pain dark brown. He says that he was recently hospitalized and was receiving antibiotics but does not remember the details. Also reports shortness of breath on rest and exertion for the same duration but no orthopnea/PND. Patient also reported dizziness on rest and on standing up from the bed starting a week ago. Associated factors include nausea and cold sweating. Denies fever/chills. He underwent a colonoscopy and EGD less than 10 years ago which was positive for polyps but details unknown. Patient has a PCP at [facility], does not remember the name Social history Lives with daughter who is the caregiver Never smoked in her life, quit drinking 50 years back, denies illicit drug use Home medications: Patient does not remember, per EMR: Alendronate 70 mg, bisoprolol 5 mg, Percocet, senna, cetirizine, duloxetine, escitalopram, gabapentin, mirabegron, levothyroxine, citalopram 06/11 - Underwent upper EGD today, 4 gastric ulcers noted. PPI 40 mg p.o. b.i.d. and Carafate. 06/12 - PT eval completed, walked more than 41 ft. DC home. Objective vital signs Vital Sign Date Time Temp Pulse Resp B/P (MAP) Pulse Ox O2 Delivery O2 Flow Rate FiO2 06/11/24 09:50 65 110/48 06/11/24 08:37 97.8 19 99 97.8 06/10/24 20:00 Nasal Cannula* 2 28 Total Intake and Output 06/10/24 06/10/24 06/11/24 15:00 23:00 07:00 Intake Total 100 ml 650 ml 1425 ml Balance 100 ml 650 ml 1425 ml medications Current Medications Medications Dose Ordered Sig/Nga Route Start Time Stop Time Status Last Admin Dose Admin Sodium Chloride 10 ml Q8HR IV 06/08/24 06:00 06/11/24 05:20 10 ML Acetaminophen 325 mg Q4HP PRN PO 06/07/24 22:15 06/09/24 15:00 325 MG Ondansetron HCl 4 mg Q4HP PRN IV 06/07/24 22:15 06/08/24 08:55 4 MG Gabapentin 100 mg QHSP PO 06/08/24 22:00 06/10/24 21:36 100 MG Levothyroxine Sodium 50 mcg QAM PO 06/08/24 07:00 06/11/24 06:16 50 MCG Oxycodone/ Acetaminophen 1 tab TID PRN PO 06/08/24 00:00 Atenolol 50 mg DAILY PO 06/08/24 10:00 06/11/24 09:50 50 MG Cyanocobalamin 2,500 mcg DAILY PO 06/08/24 10:00 06/11/24 09:50 2,500 MCG Citalopram Hydrobromide 20 mg DAILY PO 06/08/24 10:00 06/11/24 09:49 20 MG Patient Own Medication 25 mg DAILY PO 06/08/24 10:00 Patient Own Medication 1 DAILY PO 06/09/24 10:00 06/11/24 09:48 1 Sucralfate 1 gm QIDACHS PO 06/10/24 22:00 06/11/24 06:15 1 GM Pantoprazole Sodium 40 mg BID@0600,1700 PO 06/10/24 19:15 06/11/24 06:15 40 MG Examination Elderly male patient lying in bed, in no acute distress General: Elderly, afebrile, palor, mucosae are moist Cardiovascular: Regular S1 and S2. No murmurs, gallops or rubs. No JVD elevation. No pedal edema Respiratory: Bilateral basilar crackles heard, saturating 94 on 2 L nasal cannula Abdomen: Soft, nontender, nondistended, normoactive bowel sounds, no rebound tenderness, no organomegaly, no masses Genitourinary: Deferred MSK/skin: Mobilizes 4 limbs. Skin is dry and warm. Bilateral pitting edema noticed. Neurological: No motor, no sensitive deficits, normal speech. Pupils are isocoric and reactive. Psych/Mental Status: A/Ox4 laboratory and microbiology Laboratory Tests 06/10/24 05:19 Test 06/10/24 05:19 Range/Units Serum Glucose 105 74-106 mg/dL Microbiology Date/Time Source Procedure Growth Status 06/08/24 11:58 Stool Stool Culture - Final Complete 06/08/24 11:58 Stool Shiga Toxin I & II - Final Complete 06/08/24 11:58 Stool Clostridium difficile Toxin Assay - Final Complete Labs and/or images reviewed: Labs reviewed by me, Image(s) reviewed by me Problem List/Assessment/Plan Problem List/Assessment/Plan Upper GI bleeding due to gastric ulcer and esophagitis Protonix IV 40 mg b.i.d. Clear liquid diet Occult blood positive GI consulted - EGD completed 06/10 showed mild esophagitis, at least for ulcers in the antrum-one giant ulcer measuring 4 cm with large borders, biopsied Pantoprazole 40 mg p.o. b.i.d. and Carafate Outpatient follow up with [facility], follow up EGD in 2 months or p.r.n.. Hold NSAIDs until after repeat EGD in 2 months. Ruled out C diff/Shigella/Campylobacter Reports recent hospitalization or antibiotic use Stool culture is unremarkable Acute anemia-normocytic secondary to questionable GI blood loss H&H 9.04/11 H&H on 05/27-hemoglobin 13/hematocrit 31 Iron normal, TIBC low normal, % saturation normal Questionable Acute on chronic CHF exacerbation status post ppm placement at [facility] 03/2024 Chest x-ray revealed mild pulmonary vascular congestion Lasix 20 mg IV b.i.d. BNP 76 Echocardiogram LVEF 55%. Grade 1 diastolic dysfunction. Normal RV SF. Bioprosthetic AV valve likely transcutaneous with normal function and peak gradient 6 mm of mercury. No regurgitation. Last known echo 11/04 showed LVEF 61%, RVSP 40 mmHg Hyperkalemia-resolved Received 1 dose of Lokelma on admission Critical aortic stenosis status post TAVR - February 2024 at [facility] Echocardiogram LVEF 55%. Grade 1 diastolic dysfunction. Normal RV SF. Bioprosthetic AV valve likely transcutaneous with normal function and peak gradient 6 mm of mercury. No regurgitation. Metastatic Prostate cancer to his spine and ribs Patient is planned for CTX next month at [facility] Continue home medication - extandi 40 mg 4 capsules a day History of liver cirrhosis CT 05/27/2023 shows cirrhotic liver morphology. No ascites or discrete lesions. Outpatient workup advised History of stroke PT on the case History of osteoporosis with history of rib and hip fracture last year Discontinue home medication alendronate 70 mg p.o. daily given the esophagitis/gastritis Hypothyroidism TSH 5, low T4 and low T3 - advised the patient to up titrate his levothyroxine by his primary care physician Continue home medication levothyroxine 50 mcg daily History of esophagitis Pantoprazole corporate services manager consulted for transfer to [facility] Physical therapy consult Diet Clear liquid DVT prophylaxis Lovenox on hold given the suspected GI bleed Plan discussed with patient, in which all questions have been answered Goals of care discussed with the patient for more than 22 minutes, full code status Case discussed with Dr. Alvarez. PT eval completed - patient walked more than 41ft. Family requesting home health. Spoke with over phone - daughter will be picking the patient up. corporate services manager consulted to arrange home health. Patient will be discharged to home. Plan discussed with: Patient, Daughter My Orders My Orders Orders - SABA CARPENTER Procedure Category Date Status Time Discontinue Tele SARAH 06/10/24 In Process 14:46 Schedule For Dc SARAH 06/10/24 In Process Clinic F/U 15:43 Sucralfate Tab PHA 06/10/24 In Process (Carafate Tab) 22:00 Pantoprazole Tablet PHA 06/10/24 In Process (Protonix Tablet) 19:15 Soft Diet DIET 06/11/24 Transmitted Breakfast * Vp Biology CONS 06/11/24 Transmitted Consult * Vp Biology CONS 06/11/24 Transmitted Consult Discharge DISCHARGE 06/11/24 Transmitted 09:39 Date of Service: Jun 11, 2024 Billing Provider: SHERIF ALVAREZ MD Common Visit Codes: 16799-EIQ/OBS DISCH DAY >30min SABA CARPENTER Jun 11, 2024 10:00 SHERIF ALVAREZ MD Jun 11, 2024 11:53
[2024-06-11 12:30] VITALS: BP 102/48; PULSE 61; RESP 18; TEMP 98; O2SAT 99
== END 2024-06-11 13:14 | disposition home or self-care (01) | DRG 377 ==
LOC: EDBD 16:27 → ER 16:27 → OVERFLOW 22:03 → TELE-WESTW 23:52 → WEST WING 06-10 19:11 → UNDODISIN 06-10 19:17
PROVIDERS: ADMIT Internal Medicine; ATTEND Internal Medicine
PROC: 0DB78ZX Excision of Stomach, Pylorus, Via Natural or Artificial Opening Endoscopic, Diagnostic (ICD-10-PCS; principal; 2024-06-10 14:24)
DX: K25.4 Chronic or unspecified gastric ulcer with hemorrhage (principal); I50.33 Acute on chronic diastolic (congestive) heart failure; J96.21 Acute and chronic respiratory failure with hypoxia; K20.91 Esophagitis, unspecified with bleeding; C79.51 Secondary malignant neoplasm of bone; D62 Acute posthemorrhagic anemia; I11.0 Hypertensive heart disease with heart failure; K74.60 Unspecified cirrhosis of liver; I35.0 Nonrheumatic aortic (valve) stenosis; E03.9 Hypothyroidism, unspecified; E87.5 Hyperkalemia; G90.89 Other disorders of autonomic nervous system; C61 Malignant neoplasm of prostate; E78.5 Hyperlipidemia, unspecified; F32.A Depression, unspecified; Z79.1 Long term (current) use of non-steroidal anti-inflammatories (NSAID); Z85.46 Personal history of malignant neoplasm of prostate; Z82.62 Family history of osteoporosis; Z86.73 Personal history of transient ischemic attack (TIA), and cerebral infarction without residual deficits; Z95.2 Presence of prosthetic heart valve; Z95.0 Presence of cardiac pacemaker; Z91.041 Radiographic dye allergy status; Z88.1 Allergy status to other antibiotic agents; Z88.5 Allergy status to narcotic agent; Z88.6 Allergy status to analgesic agent
CPT/HCPCS: 36415; 43239; 71045; 80048; 80053; 81001; 82270; 82306; 82607; 83036; 83540; 83550; 83735; 83880; 84439; 84443; 84481; 84484; 85025; 85048; 85610; 85730; 86850; 86900; 86901; 87045; 87427; 87493; 93005; 93306; 93886; 97110; 97116; 97163; 97530; 99291; G0378; J2250; J2405; J2470